=== PATIENT | female | born 1995 | race Caucasian/White ===

== ENCOUNTER 2019-09-20 18:42 | Emergency (ER) | payer MEDICAID ==
[~2019-09-20] VITALS: Ht 157.4 cm; Wt 73.4 kg
[~2019-09-20 18:42] MED LIST: ERYT1OIN6 OP
[2019-09-20] MEDS ORDERED: NS IV 500 ML 500 ML IV ONE (19:35)
[2019-09-20 19:46] LABS: BASOPHILS # (AUTO) 0.1 10^3/uL (0.0-0.1); BASOPHILS % (AUTO) 1 % (0-10); EOSINOPHILS % (AUTO) 10 % (0-10); HEMATOCRIT 44 % (35-52); LYMPHOCYTES # (AUTO) 4.1 X 10^3 (1.0-4.0); LYMPHOCYTES % (AUTO) 38 % (12-44); MEAN CORPUSCULAR HEMOGLOBIN 29 PG (25-34); MEAN CORPUSCULAR HGB CONC 34 G/DL (32-36); MEAN CORPUSCULAR VOLUME 86 FL (80-99); MEAN PLATELET VOLUME 10.1 FL (7.4-10.4); MONOCYTES # (AUTO) 0.8 X 10^3 (0.0-1.0); MONOCYTES % (AUTO) 8 % (0-12); NEUTROPHILS # (AUTO) 4.7 X 10^3 (1.8-7.8); NEUTROPHILS % (AUTO) 44 % (42-75); PLATELET COUNT 359 10^3/uL (130-400); RED CELL DISTRIBUTION WIDTH 13.8 % (10.0-14.5); WHITE BLOOD COUNT 10.6 10^3/uL (4.3-11.0)
--- NOTE | 2019-09-20 19:48 | ED Psychosocial ---
General Stated Complaint: HEART RACING/ABD PAIN/MENTAL HEALTH PROBLEMS Source: patient Exam Limitations: no limitations History of Present Illness Date Seen by Provider: Sep 20, 2019 Time Seen by Provider: 19:20 Initial Comments Patient reports to the ER by private conveyance with chief complaint of feeling like something is wrong with her heart because she's been having some shoulder and neck pains for the past for 5 days. She's not having any chest pain or shortness of breath at this time but she says she has had periods where her left chest. Hurting her and is worse on movement. She also will be laying in bed or sitting still feeling very short of breath. She denies if history of coronary disease and heart attacks or strokes however she says during her last she was sent to Dr. Morrison at [facility] and was told she had some kind of heart disease but she doesn't know what is called or what it means. He put her on a monitor for the rest of her at that time and told her she had some kind of inappropriate tachycardia. He did not prescribe her any medications and set her up to follow-up in the clinic in 6 months. She smokes about a quarter pack a day and has used marijuana occasionally but does not use alcohol routinely or other recreational drugs. She has a lot of anxiety and has been having suicidal thoughts lately for the past several weeks. She plan to cut on herself or her major artery using a kitchen knives. She has cut on herself in the past her left wrist mostly but denies actual suicide attempt. She denies inpatient hospitalization for psychiatric reasons. She denies cutting on herself today. expecting her next Depo-Provera shot in about 1-2 weeks. She does not follow with a primary care doctor and is not on any other medications at this time. She recently moved about 3 weeks ago to [place]. She lives at home with her 3 children. Severity: moderate Allergies and Home Medications Allergies Coded Allergies: No Known Drug Allergies (Unverified , 09/20/19) Home Medications Erythromycin Base 1 Gm Oint...g., 0 OP Q4H 1/2 inch Prescribed by: HSERON HYDE on 06/13/15 1335 Patient Home Medication List Home Medication List Reviewed: Yes Review of Systems Constitutional: No chills, No diaphoresis EENTM: No ear discharge, No ear pain Respiratory: see HPI; No cough; short of breath Cardiovascular: see HPI; No edema, No Hx of Intervention, No palpitations, No syncope Gastrointestinal: No abdominal pain, No constipation Genitourinary: No discharge, No dysuria : No Control/STD Prophylaxis: Depo Provera Musculoskeletal: No back pain, No joint pain Skin: No pruritus, No rash Psychiatric/Neurological: See HPI, Anxiety, Depressed, Emotional Problems; Denies Headache, Denies Numbness, Denies Paresthesia Past Wapnkzf-Kfzkmf-Nyeueb Hx Patient Social History Alcohol Use: Rarely Uses Recreational Drug Use: Yes Drug of Choice: occ cannibus Smoking Status: Current Everyday Smoker Type Used: Cigarettes (0.25 ppd) Recent Foreign Travel: No Contact w/Someone Who Travel: No Past Medical History Reproductive Disorders: No Family Medical History No Pertinent Family Hx Physical Exam Vital Signs - First Documented 09/20/19 19:20 Temp 36.8 Pulse 102 Resp 18 B/P (MAP) 116/79 (91) Pulse Ox 98 Capillary Refill : Height, Weight, BMI Height: 5'2" Weight: 170lbs. oz. [id number]; BMI Method: General Appearance: WD/WN, no apparent distress HEENT: PERRL/EOMI, pharynx normal Neck: full range of motion, normal inspection Respiratory: chest non-tender, lungs clear, normal breath sounds, no respiratory distress, no accessory muscle use Cardiovascular: normal peripheral pulses, regular rate, rhythm Peripheral Pulses: 2+ Radial Pulses (R), 2+ Radial Pulses (L) Gastrointestinal: normal bowel sounds, non tender, soft Extremities: normal range of motion, non-tender, normal capillary refill Neurologic/Psychiatric: alert, normal mood/affect, oriented x 3 Appearance/Memory: appropriate appearance, appropriate insight Behavior/Eye Contact: cooperative, good eye contact, normal speech Thoughts/Hallucinations: normal thought pattern, no apparent hallucination Skin: normal color, warm/dry Progress/Results/Core Measures Results/Orders Lab Results Laboratory Tests Test 09/20/19 19:35 09/20/19 20:16 Range/Units White Blood Count 10.6 4.3-11.0 10^3/uL Red Blood Count 5.10 4.35-5.85 10^6/uL Hemoglobin 15.0 11.5-16.0 G/DL Hematocrit 44 35-52 % Mean Corpuscular Volume 86 80-99 FL Mean Corpuscular Hemoglobin 29 25-34 PG Mean Corpuscular Hemoglobin Concent 34 32-36 G/DL Red Cell Distribution Width 13.8 10.0-14.5 % Platelet Count 359 130-400 10^3/uL Mean Platelet Volume 10.1 7.4-10.4 FL Neutrophils (%) (Auto) 44 42-75 % Lymphocytes (%) (Auto) 38 12-44 % Monocytes (%) (Auto) 8 0-12 % Eosinophils (%) (Auto) 10 0-10 % Basophils (%) (Auto) 1 0-10 % Neutrophils # (Auto) 4.7 1.8-7.8 X 10^3 Lymphocytes # (Auto) 4.1 H 1.0-4.0 X 10^3 Monocytes # (Auto) 0.8 0.0-1.0 X 10^3 Eosinophils # (Auto) 1.0 H 0.0-0.3 10^3/uL Basophils # (Auto) 0.1 0.0-0.1 10^3/uL Sodium Level 139 135-145 MMOL/L Potassium Level 4.3 3.6-5.0 MMOL/L Chloride Level 106 98-107 MMOL/L Carbon Dioxide Level 22 21-32 MMOL/L Anion Gap 11 5-14 MMOL/L Blood Urea Nitrogen 20 H 7-18 MG/DL Creatinine 0.82 0.60-1.30 MG/DL Estimat Glomerular Filtration Rate > 60 BUN/Creatinine Ratio 24 Glucose Level 86 70-105 MG/DL Calcium Level 9.9 8.5-10.1 MG/DL Corrected Calcium 8.5-10.1 MG/DL Total Bilirubin 0.3 0.1-1.0 MG/DL Aspartate Amino Transf (AST/SGOT) 19 5-34 U/L Alanine Aminotransferase (ALT/SGPT) 26 0-55 U/L Alkaline Phosphatase 114 40-136 U/L Total Protein 8.6 H 6.4-8.2 GM/DL Albumin 4.9 H 3.2-4.5 GM/DL Thyroid Stimulating Hormone (TSH) 1.67 0.35-4.94 UIU/ML Salicylates Level < 5.0 L 5.0-20.0 MG/DL Acetaminophen Level < 10 L 10-30 UG/ML Serum Alcohol < 10 <10 MG/DL Urine Color YELLOW Urine Clarity CLEAR Urine pH 7.0 5-9 Urine Specific [place] 1.020 1.016-1.022 Urine Protein NEGATIVE NEGATIVE Urine Glucose (UA) NEGATIVE NEGATIVE Urine Ketones NEGATIVE NEGATIVE Urine Nitrite NEGATIVE NEGATIVE Urine Bilirubin NEGATIVE NEGATIVE Urine Urobilinogen 0.2 < = 1.0 MG/DL Urine Leukocyte Esterase TRACE NEGATIVE Urine RBC (Auto) NEGATIVE NEGATIVE Urine RBC RARE /HPF Urine WBC RARE /HPF Urine Squamous Epithelial Cells 2-5 /HPF Urine Crystals NONE /LPF Urine Bacteria FEW H /HPF Urine Casts NONE /LPF Urine Mucus SMALL H /LPF Urine Culture Indicated NO Urine Opiates Screen NEGATIVE NEGATIVE Urine Oxycodone Screen NEGATIVE NEGATIVE Urine Methadone Screen NEGATIVE NEGATIVE Urine Propoxyphene Screen NEGATIVE NEGATIVE Urine Barbiturates Screen NEGATIVE NEGATIVE Ur Tricyclic Antidepressants Screen NEGATIVE NEGATIVE Urine Phencyclidine Screen NEGATIVE NEGATIVE Urine Amphetamines Screen POSITIVE H NEGATIVE Urine Methamphetamines Screen POSITIVE H NEGATIVE Urine Benzodiazepines Screen POSITIVE H NEGATIVE Urine Cocaine Screen NEGATIVE NEGATIVE Urine Cannabinoids Screen NEGATIVE NEGATIVE My Orders Orders - ADDIS VEGA Ua Culture If Indicated (09/20/19 19:35) Cbc With Automated Diff (09/20/19 19:35) Comprehensive Metabolic Panel (09/20/19 19:35) Alcohol (09/20/19 19:35) Drug Screen Stat (Urine) (09/20/19 19:35) Acetaminophen (09/20/19 19:35) Salicylate (09/20/19 19:35) Ekg Tracing (09/20/19 19:35) Ed Iv/Invasive Line Start (09/20/19 19:35) Monitor-Rhythm Ecg Trace Only (09/20/19 19:35) Bh Status Checks/Observation Q15M (09/20/19 19:35) Ed Iv/Invasive Line Start (09/20/19 19:35) Ns Iv 500 Ml (Sodium Chloride 0.9%) (09/20/19 19:35) Urine Bedside (09/20/19 19:35) Chest 1 View, Ap/Pa Only (09/20/19 19:35) Thyroid Stimulating Hormone (09/20/19 19:35) Medications Given in ED Current Medications Medications Dose Ordered Sig/Lisa Route Start Time Stop Time Status Last Admin Dose Admin Sodium Chloride 500 ml @ 0 mls/hr Q0M ONCE IV 09/20/19 19:35 09/20/19 19:39 DC 09/20/19 19:50 500 MLS/HR Vital Signs/I&O 09/20/19 19:20 Temp 36.8 Pulse 102 Resp 18 B/P (MAP) 116/79 (91) Pulse Ox 98 Progress Progress Note #1: Time: 20:31 Progress Note We'll look for dysrhythmias evidence of myocarditis or pericarditis. Check an EKG and troponin. We'll get a chest x-ray. She's not having a cough or symptoms to support pneumonia. She has good breath sounds bilaterally so pneumothorax is much less likely. Her symptoms are intermittent which is more likely related to an anxiety syndrome rather than persistent life-threatening cause of chest pain. Progress Note #2: Time: 21:11 Progress Note The patient is comfortable. Were going to have the screenerEligio for [facility] come out and speak to her about setting up some outpatient follow-up versus inpatient. Her labs are unremarkable but her urine drug screen reveals benzos and methamphetamine. Progress Note #3: Time: 21:57 Progress Note Dez from [facility] came out and screen the patient. His sto ry lined up with our story and after discussing her needs he has helped her set up some outpatient follow-up through community health as well as with psychiatric care and counseling. He will also call and check up on her in the morning. He feels that she is low risk and at this time I would agree. She has a safe line and in agreement in place and is willing to go home and follow-up tomorrow. Initial ECG Impression Date: Sep 20, 2019 Initial ECG Impression Time: 19:34 Initial ECG Rate: 89 Initial ECG Rhythm: Normal Sinus Initial ECG Intervals: Normal Initial ECG Impression: Normal Initial ECG Comparisson: No Previous ECG Available Comment Normal sinus rhythm without ST elevation or depression. Diagnostic Imaging Diagonstic Imaging: Xray Plain Films/CT/US/NM/MRI: chest (1v) Comments NAME: MANUELMAYURI REC#: [id number] PT STATUS: REG ER : 1995 PHYSICIAN: ADDIS VEGA MD ADMIT DATE: 09/20/19/ER Signed Date of Exam:09/20/19 CHEST 1 VIEW, AP/PA ONLY CHEST 1 VIEW, AP/PA ONLY Indication: Cough Comparison: None available. Findings: No focal airspace disease in the visualized lungs. Please note that the posterior lower lobes are poorly evaluated by portable radiography. No pleural effusion or pneumothorax. Normal cardiomediastinal silhouette. Impression: 1. No acute cardiopulmonary process by portable radiography. Dictated by: Dictated on workstation # [id number] Dict: 09/20/192009 Trans: 09/20/192009 [facility] [id number] Interpreted by: JACK HOU MD Electronically signed by: JACK HOU MD 09/20/192009 Reviewed: Reviewed by Me Departure Impression Primary Impression: Depression with suicidal ideation Additional Impression: Musculoskeletal chest pain Disposition: HOME, SELF-CARE Condition: Stable Departure-Patient Inst. Decision time for Depature: 21:58 Referrals: NO,LOCAL PHYSICIAN (PCP/Family) Primary Care Physician Patient Instructions: Depression, Adult (DC), ALCOHOL AND SUBSTANCE ABUSE, Suicide Prevention Add. Discharge Instructions: Tomorrow follow-up with the [facility] health folks per your plan. Get set up with a primary care doctor to discuss possible causes of your body aches. Get set up with a psychiatrist and counseling as appropriate for your suicidal thoughts. If it any point you don't feel like your safe at home or you need to come back To the ER then please return to the nearest ER. Work/School Note: Work Release Form Date Seen in the Emergency Department: Sep 20, 2019 Return to Work: Sep 22, 2019 Restrictions: No Restrictions ADDIS VEGA Sep 20, 2019 19:48
[2019-09-20 20:04] LABS: ALANINE AMINOTRANSFERASE 26 U/L (0-55); ALBUMIN 4.9 GM/DL (3.2-4.5); ALKALINE PHOSPHATASE 114 U/L (40-136); BILIRUBIN,TOTAL 0.3 MG/DL (0.1-1.0); BUN/CREATININE RATIO 24; CALCIUM 9.9 MG/DL (8.5-10.1); CARBON DIOXIDE 22 MMOL/L (21-32); CHLORIDE 106 MMOL/L (98-107); CREATININE SERUM 0.82 MG/DL (0.60-1.30); GFR ESTIMATED > 60; GLUCOSE 86 MG/DL (70-105); POTASSIUM 4.3 MMOL/L (3.6-5.0); SALICYLATE < 5.0 MG/DL (5.0-20.0); SODIUM 139 MMOL/L (135-145); TOTAL PROTEIN 8.6 GM/DL (6.4-8.2)
--- NOTE | 2019-09-20 20:12 | Diagnostic Imaging Report ---
CHEST 1 VIEW, AP/PA ONLY Indication: Cough Comparison: None available. Findings: No focal airspace disease in the visualized lungs. Please note that the posterior lower lobes are poorly evaluated by portable radiography. No pleural effusion or pneumothorax. Normal cardiomediastinal silhouette. Impression: 1. No acute cardiopulmonary process by portable radiography. Dictated by: Dictated on workstation # [id number]
[2019-09-20 20:25] LABS: BILIRUBIN,URINE NEGATIVE (NEGATIVE); CLARITY,URINE CLEAR; COLOR,URINE YELLOW; GLUCOSE, URINE (UA) NEGATIVE (NEGATIVE); KETONES,URINE NEGATIVE (NEGATIVE); LEUKOCYTE ESTERASE ,URINE TRACE (NEGATIVE); NITRITE,URINE NEGATIVE (NEGATIVE); PROTEIN,URINE NEGATIVE (NEGATIVE)
[2019-09-20 20:25] LABS: ACETAMINOPHEN < 10 UG/ML (10-30)
[2019-09-20 20:39] LABS: AMPHETAMINE SCREEN, URINE POSITIVE (NEGATIVE); BARBITURATE SCREEN URINE NEGATIVE (NEGATIVE); BENZODIAZEPINES SCREEN URINE POSITIVE (NEGATIVE); CANNABINOID SCREEN, URINE NEGATIVE (NEGATIVE); COCAINE SCREEN URINE NEGATIVE (NEGATIVE); METHADONE STAT NEGATIVE (NEGATIVE); METHAMPHETAMINE SCREEN URINE S POSITIVE (NEGATIVE); OPIATE SCREEN URINE NEGATIVE (NEGATIVE); OXYCODONE STAT NEGATIVE (NEGATIVE); PROPOXYPHENE STAT NEGATIVE (NEGATIVE); TRICYCLIC ANTIDEPRESSANTS SCRE NEGATIVE (NEGATIVE)
[2019-09-20 20:48] LABS: BACTERIA,URINE FEW /HPF; RBC,URINE RARE /HPF; WBC,URINE RARE /HPF
--- NOTE | 2019-09-20 20:58 | NUR ---
SPOKE WITH BAILEY GREENWOOD FROM [facility] CALLS INFORMS THIS RN HE WILL BE COMING TO SCREEN PATIENT.
--- NOTE | 2019-09-20 21:17 | NUR ---
BAILEY HOROWITZ FROM [facility] ARRIVES TO ROOM, INTRODUCTIONS MADE FOR SCREENING.
--- NOTE | 2019-09-20 21:36 | NUR ---
[facility] CRISIS [facility] INFORMED MENTAL HEALTH SREENING NEEDED
--- NOTE | 2019-09-20 21:50 | NUR ---
SCREENING COMPLETE, DR VEGA SPEAKING WITH [facility] SCREENER.
[2019-09-20 22:11] VITALS: BP 120/67
== END 2019-09-20 22:13 | disposition home or self-care (01) ==
LOC: EDUNIT# 18:42 → ER 18:44
DX: R45.851 Suicidal ideations (principal); F32.9 Major depressive disorder, single episode, unspecified; R07.89 Other chest pain; F17.210 Nicotine dependence, cigarettes, uncomplicated
CPT/HCPCS: 36415; 71045; 80053; 80306; 80320; 80329; 81000; 84443; 84703; 85025; 93005; 93041

== ENCOUNTER 2020-04-25 09:06 | Emergency (ER) | payer MEDICAID ==
[~2020-04-25] VITALS: Ht 157.4 cm; Wt 77.7 kg
[2020-04-25 09:08] VITALS: BP 149/103
--- NOTE | 2020-04-25 09:37 | ED Integumentary General ---
General Chief Complaint: Skin/Wound Problems Stated Complaint: RASH;SKIN PROBLEM;NAUSEA Source: patient Exam Limitations: no limitations (GINGER LUX STUDENT) History of Present Illness Date Seen by Provider: Apr 25, 2020 Time Seen by Provider: 09:20 Initial Comments This is a 24 YO female who presents to the ED with rash on the right facial cheek that she noticed at 4:00 this morning. Pt states she noticed what looked like a pimple on her face last night and tried to pop it, but was unable to express any pus or drainage. When she woke up this morning, the whole cheek was red, swollen, painful, and oozing clear fluid and she had developed a sore throat. Pt took OTC Ibuprofen with no improvement in pain. She also notes she felt subjective fever and chills on the drive to the ER. He has a history of root canal on the upper right side of her mouth, which she says needs to be redone, but denies any recent dental pain or infection. Pt says her mother is a nurse and was worried about cellulitis, so she wanted pt to come to the ER. Timing/Duration: this morning Location: face Associated Symptoms: sore throat (GINGER LUX STUDENT) Allergies and Home Medications Allergies Coded Allergies: No Known Drug Allergies (Unverified , 09/20/19) Home Medications Doxycycline Hyclate 100 Mg Tablet, 100 MG PO BID Prescribed by: ISAIAH LUNA on 04/25/20 1003 Erythromycin Base 1 Gm Oint...g., 0 OP Q4H 1/2 inch Prescribed by: SHERON HYDE on 06/13/15 1335 Sulfamethoxazole/Trimethoprim 1 Each Tablet, 1 EACH PO BID Prescribed by: ISAIAH LUNA on 04/25/20 1003 Patient Home Medication List Home Medication List Reviewed: Yes (GINGER LUX STUDENT) Review of Systems Review of Systems Constitutional: see HPI EENTM: see HPI Respiratory: no symptoms reported Cardiovascular: no symptoms reported Gastrointestinal: no symptoms reported Genitourinary: no symptoms reported Musculoskeletal: see HPI Skin: see HPI Psychiatric/Neurological: No Symptoms Reported Endocrine: No Symptoms Reported Hematologic/Lymphatic: See HPI (GINGER LUX STUDENT) All Other Systems Reviewed Negative Unless Noted: Yes (GINGER LUX STUDENT) Past Iaiyihz-Lwsofa-Rnztty Hx Patient Social History Drug of Choice: occ cannibus Type Used: Cigarettes 2nd Hand Smoke Exposure: Yes Recent Foreign Travel: No Contact w/Someone Who Travel: No Recent Hopitalizations: No (GINGER LUX MED STUDENT) Immunizations Up To Date Tetanus Booster (TDap): Less than 5yrs PED Vaccines UTD: Yes (GINGER LUX) Seasonal Allergies Seasonal Allergies: Yes (GINGER LUX) Past Medical History Gallbladder Respiratory: No Cardiac: Yes Irregular Heartbeat, Palpitations Headaches /Migraines Reproductive Disorders: No Chronic Constipation, Chronic Diarrhea, Irritable Bowel Musculoskeletal: No Endocrine: No HEENT: No (wears glasses) Cancer: No Psychosocial: Yes Sleep Difficulties, Anxiety, PTSD, Suicide Attempts, Bipolar, Depression Integumentary: No Blood Disorders: No (GINGER LUX) Family Medical History No Pertinent Family Hx (GINGER LUX) Physical Exam Vital Signs Vital Signs - First Documented 04/25/20 09:08 Temp 36.4 Pulse 113 Resp 18 B/P (MAP) 149/103 (118) O2 Delivery Room Air (ISAIAH BREAUX MD) Vital Signs Capillary Refill : (GINGER LUX STUDENT) General Appearance: WD/WN, no apparent distress HEENT: PERRL/EOMI, TM abnormal (R) (occluded by cerumen), other (tonsillar swelling and erythema) Neck: non-tender, supple, normal inspection Cardiovascular: regular rate, rhythm Respiratory: no respiratory distress, no accessory muscle use Extremities: normal range of motion, normal inspection Neurologic/Psychiatric: no motor/sensory deficits, alert, normal mood/affect, oriented x 3 Skin: No diaphoresis; other (right cheek is erythematous and swollen with some mild induration and tenderness, but no fluctuance) Skin Problem Location: face Lymphatic: no adenopathy (GINGER LUX LurnQ STUDENT) Progress/Results/Core Measures Results/Orders My Orders Orders - ISAIAH BREAUX MD Ceftriaxone For Im Use (Rocephin For Im (04/25/20 10:00) Lidocaine 1% Inj 20 Ml (Xylocaine 1% Inj (04/25/20 10:00) (ISAIAH BREAUX MD) Medications Given in ED Current Medications Medications Dose Ordered Sig/Lisa Route Start Time Stop Time Status Last Admin Dose Admin Ceftriaxone Sodium 1,000 mg ONCE ONCE IM 04/25/20 10:00 04/25/20 10:01 DC 04/25/20 10:08 1,000 MG Lidocaine HCl 2.1 ml ONCE ONCE INJ 04/25/20 10:00 04/25/20 10:01 DC 04/25/20 10:09 2.1 ML (ISAIAH BREAUX MD) Vital Signs/I&O 04/25/20 09:08 Temp 36.4 Pulse 113 Resp 18 B/P (MAP) 149/103 (118) O2 Delivery Room Air (ISAIAH BREAUX MD) Progress Progress Note : Time: 10:00 Progress Note Talked to pt about plan to give IM shot of Rocephin in the ED and write pt Rx for Bactrim. Discussed that I&D is not indicated at this time because pt does not have a fluctuant abscess that can be drained. Advised pt to not touch the cheek and to return to the ED if her symptoms worsen or do not improve. Pt un derstands and agrees with plan. (GINGER LUX MED STUDENT) Departure Impression Primary Impression: Facial cellulitis Disposition: 01 HOME, SELF-CARE Condition: Improved Departure-Patient Inst. Referrals: NO,LOCAL PHYSICIAN (PCP/Family) Primary Care Physician Patient Instructions: Cellulitis (Skin Infection), Adult (DC) Add. Discharge Instructions: Start your antibiotics immediately and completely entire course. You should start noticing gradual improvement after about 24 hours of antibiotic therapy. If symptoms are worsening or you develop new symptoms such as fevers over 100, continued spreading, intensifying pain, etc. please return to the emergency room. You may treat pain with ibuprofen up to 600 mg every 6 hours and Tylenol up to 1000 mg every 6 hours. All discharge instructions reviewed with patient and/or family. Voiced understanding. Scripts Doxycycline Hyclate (Doxycycline Hyclate) 100 Mg Tablet 100 MG PO BID, #20 TAB 0 Refills Prov: ISAIAH BREAUX MD 04/25/20 Sulfamethoxazole/Trimethoprim (Bactrim Ds Tablet) 1 Each Tablet 1 EACH PO BID, #20 TAB Prov: ISAIAH BREAUX MD 04/25/20 This patient was interviewed and examined by me personally along with Ginger Lux, MS 3. I agree with MS 3 documentation including history, physical, and assessments except were otherwise noted. This patient may have had a pustule that led to cellulitis. Careful palpation of the area revealed no drainable abscess. Staph infection is suspected. Treatment was started with Rocephin injection in the emergency room. She will be treated aggressively with further antibiotics including Bactrim DS and doxycycline. Strict return precautions were discussed with the patient. Exam: Gen.: Alert, oriented, well-developed, in no acute distress HEENT: There is a patch of erythema and perhaps about 6 cm in diameter on the right cheek with some associated induration. Skin also feels slightly excoriated, possibly traumatized by the patient. Patient has been experiencing weeping of clear liquid but this is not really expressible or witnessed on my exam. Area is tender. Oropharynx including the gumline is unremarkable on my exam Neck: No adenopathy or tenderness Heart: Regular rate and rhythm without murmur Lungs: Clear to auscultation bilaterally Skin: Warm and dry, see HEENT above (ISAIAH BREAUX MD) GINGER LUX MED STUDENT Apr 25, 2020 09:37 ISAIAH BREAUX MD Apr 25, 2020 10:06
[2020-04-25] MEDS ORDERED: LIDOCAINE 1% INJ 20 ML 20 ML VIAL INJ ONE (10:00)
[2020-04-25] MEDS ORDERED: cefTRIAXone 1,000 MG/2.86 ml vial (IM ONLY) IM ONE (10:00)
[2020-04-25] MEDS ORDERED: DOXY100T2 PO (10:03)
[2020-04-25] MEDS ORDERED: SULF1TAB35 PO (10:03)
== END 2020-04-25 10:19 | disposition home or self-care (01) ==
LOC: EDUNIT# 09:06 → ER 09:08
DX: L03.211 Cellulitis of face (principal); K58.0 Irritable bowel syndrome with diarrhea; K58.1 Irritable bowel syndrome with constipation; H61.21 Impacted cerumen, right ear; Z77.22 Contact with and (suspected) exposure to environmental tobacco smoke (acute) (chronic)
CPT/HCPCS: 99284

== ENCOUNTER 2020-04-28 09:05 | Emergency (ER) | payer MEDICAID ==
[~2020-04-28] VITALS: Ht 157 cm; Wt 72.0 kg
[~2020-04-28 09:05] MED LIST changes: +DOXY100T2 PO; +SULF1TAB35 PO
[2020-04-28 10:04] LABS: BASOPHILS % (AUTO) 1 % (0-10); EOSINOPHILS # (AUTO) 0.2 10^3/uL (0.0-0.3); EOSINOPHILS % (AUTO) 3 % (0-10); HEMATOCRIT 42 % (35-52); HEMOGLOBIN 14.5 G/DL (11.5-16.0); LYMPHOCYTES # (AUTO) 2.2 X 10^3 (1.0-4.0); LYMPHOCYTES % (AUTO) 35 % (12-44); MEAN CORPUSCULAR HEMOGLOBIN 30 PG (25-34); MEAN CORPUSCULAR HGB CONC 35 G/DL (32-36); MEAN CORPUSCULAR VOLUME 86 FL (80-99); MEAN PLATELET VOLUME 10.8 FL (7.4-10.4); MONOCYTES # (AUTO) 0.5 X 10^3 (0.0-1.0); MONOCYTES % (AUTO) 8 % (0-12); NEUTROPHILS # (AUTO) 3.3 X 10^3 (1.8-7.8); NEUTROPHILS % (AUTO) 53 % (42-75); PLATELET COUNT 263 10^3/uL (130-400); RED CELL DISTRIBUTION WIDTH 12.4 % (10.0-14.5); WHITE BLOOD COUNT 6.2 10^3/uL (4.3-11.0)
[2020-04-28 10:14] LABS: ALBUMIN 4.3 GM/DL (3.2-4.5); CHLORIDE 106 MMOL/L (98-107); POTASSIUM 3.6 MMOL/L (3.6-5.0); SODIUM 138 MMOL/L (135-145)
[2020-04-28 10:15] LABS: CALCIUM 9.2 MG/DL (8.5-10.1)
[2020-04-28 10:16] LABS: GLUCOSE 91 MG/DL (70-105); TOTAL PROTEIN 7.6 GM/DL (6.4-8.2)
[2020-04-28 10:17] LABS: CARBON DIOXIDE 22 MMOL/L (21-32)
[2020-04-28 10:18] LABS: BILIRUBIN,TOTAL 0.4 MG/DL (0.1-1.0)
[2020-04-28 10:20] LABS: ALKALINE PHOSPHATASE 96 U/L (40-136); CREATININE SERUM 0.84 MG/DL (0.60-1.30); GFR ESTIMATED > 60
[2020-04-28 10:21] LABS: BUN/CREATININE RATIO 13
[2020-04-28 10:23] LABS: ALANINE AMINOTRANSFERASE 18 U/L (0-55)
--- NOTE | 2020-04-28 10:58 | ED EENT ---
History of Present Illness General Chief Complaint: Facial Problems Stated Complaint: LOSS OF HEARING R EAR, FACIAL CELLULITIS Nursing Triage Note: PT TO ROOM 4 PT CO OF R EAR PAIN AND MUFFLED HEARING, PT STATES WAS SEEN FRIDAY FOR LARGE WOUND ON FACE. PT IS CURRENTLY TAKING ANTIBIOTICS. STATES WOUND IS BETTER BUT R EAR HAS STARTED HURTING Source: patient Exam Limitations: no limitations History of Present Illness Date Seen by Provider: Apr 28, 2020 Time Seen by Provider: 10:52 Initial Comments To ER with reports of right ear and right jaw pain. She was seen here a few days ago for cellulitis of the right side of the face. She was given 2 oral antibiotics and states it is improving a little bit but she now has some pain in her ear, difficulty hearing. Timing/Duration: this morning Severity: moderate Prearrival Treatment: no prearrival treatment Associated Symptoms: facial pain/swelling Allergies and Home Medications Allergies Coded Allergies: No Known Drug Allergies (Unverified , 09/20/19) Home Medications Doxycycline Hyclate 100 Mg Tablet, 100 MG PO BID Prescribed by: ISAIAH LUNA on 04/25/20 1003 Erythromycin Base 1 Gm Oint...g., 0 OP Q4H 1/2 inch Prescribed by: SHERON HYDE on 06/13/15 1335 Sulfamethoxazole/Trimethoprim 1 Each Tablet, 1 EACH PO BID Prescribed by: ISAIAH LUNA on 04/25/20 1003 Patient Home Medication List Home Medication List Reviewed: Yes Review of Systems Review of Systems Constitutional: see HPI Eyes: No Symptoms Reported Ears: No Symptoms Reported Nose: no symptoms reported Mouth: no symptoms reported Throat: no symptoms reported Respiratory: no symptoms reported Cardiovascular: no symptoms reported Musculoskeletal: no symptoms reported Skin: see HPI Neurological: No Symptoms Reported Hematologic/Lymphatic: No Symptoms Reported Immunological/Allergic: no symptoms reported Past Fskvdkl-Fsided-Qysqru Hx Patient Social History Alcohol Use: Denies Use Recreational Drug Use: Yes (MARIJUANA) Drug of Choice: occ cannibus Smoking Status: Current Everyday Smoker Type Used: Cigarettes 2nd Hand Smoke Exposure: Yes Recent Foreign Travel: No Contact w/Someone Who Travel: No Recent Infectious Disease Expo: No Recent Hopitalizations: No Physical Abuse: No Sexual Abuse: No Immunizations Up To Date Tetanus Booster (TDap): Less than 5yrs PED Vaccines UTD: Yes Seasonal Allergies Seasonal Allergies: Yes Past Medical History Surgeries: No Gallbladder Respiratory: No Cardiac: Yes Irregular Heartbeat, Palpitations Neurological: No Headaches /Migraines Reproductive Disorders: No Chronic Constipation, Chronic Diarrhea, Irritable Bowel Musculoskeletal: No Endocrine: No HEENT: No (wears glasses) Cancer: No Psychosocial: Yes Sleep Difficulties, Anxiety, PTSD, Suicide Attempts, Bipolar, Depression Integumentary: No Blood Disorders: No Family Medical History No Pertinent Family Hx Physical Exam Vital Signs Vital Signs - First Documented 04/28/20 09:20 Temp 37.0 Pulse 82 Resp 18 B/P (MAP) 116/62 (80) Pulse Ox 99 Height, Weight, BMI Height: 5'2" Weight: 170lbs. oz. [id number]; 29.00 BMI Method: General Appearance: WD/WN, no apparent distress Eyes: bilateral eye normal inspection, bilateral eye PERRL, bilateral eye EOMI Ears: bilateral ear auricle normal, bilateral ear canal normal, bilateral ear TM normal Respiratory: no respiratory distress, no accessory muscle use Gastrointestinal: normal bowel sounds, non tender Neurologic/Psychiatric: alert, normal mood/affect, oriented x 3 Skin: normal color, warm/dry, other (erythema with some honey colored exudate on the right cheek consistent with an impetigo. Right ear does show a cerumen impaction which I attempted to irrigate with peroxide and warm water. We got some of it out but not all of it.) Progress/Results/Core Measures Results/Orders Lab Results Laboratory Tests Test 04/28/20 09:55 Range/Units White Blood Count 6.2 4.3-11.0 10^3/uL Red Blood Count 4.81 4.35-5.85 10^6/uL Hemoglobin 14.5 11.5-16.0 G/DL Hematocrit 42 35-52 % Mean Corpuscular Volume 86 80-99 FL Mean Corpuscular Hemoglobin 30 25-34 PG Mean Corpuscular Hemoglobin Concent 35 32-36 G/DL Red Cell Distribution Width 12.4 10.0-14.5 % Platelet Count 263 130-400 10^3/uL Mean Platelet Volume 10.8 H 7.4-10.4 FL Neutrophils (%) (Auto) 53 42-75 % Lymphocytes (%) (Auto) 35 12-44 % Monocytes (%) (Auto) 8 0-12 % Eosinophils (%) (Auto) 3 0-10 % Basophils (%) (Auto) 1 0-10 % Neutrophils # (Auto) 3.3 1.8-7.8 X 10^3 Lymphocytes # (Auto) 2.2 1.0-4.0 X 10^3 Monocytes # (Auto) 0.5 0.0-1.0 X 10^3 Eosinophils # (Auto) 0.2 0.0-0.3 10^3/uL Basophils # (Auto) 0.0 0.0-0.1 10^3/uL Sodium Level 138 135-145 MMOL/L Potassium Level 3.6 3.6-5.0 MMOL/L Chloride Level 106 98-107 MMOL/L Carbon Dioxide Level 22 21-32 MMOL/L Anion Gap 10 5-14 MMOL/L Blood Urea Nitrogen 11 7-18 MG/DL Creatinine 0.84 0.60-1.30 MG/DL Estimat Glomerular Filtration Rate > 60 BUN/Creatinine Ratio 13 Glucose Level 91 70-105 MG/DL Calcium Level 9.2 8.5-10.1 MG/DL Corrected Calcium 9.0 8.5-10.1 MG/DL Total Bilirubin 0.4 0.1-1.0 MG/DL Aspartate Amino Transf (AST/SGOT) 18 5-34 U/L Alanine Aminotransferase (ALT/SGPT) 18 0-55 U/L Alkaline Phosphatase 96 40-136 U/L C-Reactive Protein High Sensitivity 0.55 H 0.00-0.50 MG/DL Total Protein 7.6 6.4-8.2 GM/DL Albumin 4.3 3.2-4.5 GM/DL Vital Signs/I&O 04/28/20 09:20 Temp 37.0 Pulse 82 Resp 18 B/P (MAP) 116/62 (80) Pulse Ox 99 Blood Pressure Mean: 80 Departure Impression Primary Impression: Impetigo Additional Impression: Cerumen impaction Qualified Codes: H61.21 - Impacted cerumen, right ear Disposition: 01 HOME, SELF-CARE Condition: Stable Departure-Patient Inst. Decision time for Depature: 10:56 Referrals: NO,LOCAL PHYSICIAN (PCP/Family) Primary Care Physician Patient Instructions: Impetigo (DC), Ear Wax Impaction (DC) Add. Discharge Instructions: 1. Use the eardrops as directed to help soften up the wax that is in there. Then you can mix hydrogen peroxide and warm water together and irrigate gently at home after a few days of softening it up. Use a warm wet washcloth to remove the crusts from the right cheek. Scripts Mupirocin (Mupirocin) 22 Gm Oint...g. 1 GM TP BID, #1 TUBE Prov: MCKAYLA ALVAREZ APRN 04/28/20 Neomycin/Polymyxin B Sulf/Hc (Mbhmrhwk-Nldnqqyof-Ng Ear Susp) 10 Ml Drops.susp 10 ML OT BID for 5 Days, #1 DROPS Prov: MCKAYLA ALVAREZ APRN 04/28/20 MCKAYLA ALVAREZ APRN Apr 28, 2020 10:57
[2020-04-28] MEDS ORDERED: HYDR-3870 PO (10:59)
[2020-04-28] MEDS ORDERED: MUPI22OI2 TP (10:59)
[2020-04-28] MEDS ORDERED: NEOM10DR42 OT (10:59)
[2020-04-28] MEDS ORDERED: KETOROLAC 30 MG/ML VIAL IVP ONE (11:00)
[2020-04-28] MEDS ORDERED: cefTRIAXone FOR IV USE 1,000 MG in WATER (STERILE) FOR INJECTION 10 ML IV ONE (11:00)
[2020-04-28 11:24] VITALS: BP 116/62
== END 2020-04-28 11:24 | disposition home or self-care (01) ==
LOC: EDUNIT# 09:05 → ER 09:07
DX: L01.00 Impetigo, unspecified (principal); H61.21 Impacted cerumen, right ear; F17.210 Nicotine dependence, cigarettes, uncomplicated; K58.1 Irritable bowel syndrome with constipation; K58.0 Irritable bowel syndrome with diarrhea
CPT/HCPCS: 36415; 80053; 85025; 86141

== ENCOUNTER 2021-06-22 13:52 | Inpatient (IN) | payer MEDICAID ==
[~2021-06-22] VITALS: Ht 157.5 cm; Wt 52.3 kg
[~2021-06-22 13:52] MED LIST changes: +HYDR-3870 PO; +MUPI22OI2 TP; +NEOM10DR42 OT; -SULF1TAB35 PO; +SULF1TAB38 PO
--- NOTE | 2021-06-22 14:14 | ED GI ---
General Chief Complaint: Abdominal/GI Problems Stated Complaint: ABDOMINAL PAIN Nursing Triage Note: Pt arrives to ER via w/c, c/o sharp stabbing abd pain onset during the night, denies n/v/d. Source of Information: Patient Exam Limitations: No Limitations History of Present Illness Date Seen by Provider: Jun 22, 2021 Time Seen by Provider: 14:12 Initial Comments to ER with sharp right-sided abdominal pain onset last night without nausea vomiting or diarrhea. Had a faint positive test last week and then she began her menstrual period after. Timing/Duration: 1-2 Days Severity/Quality: Moderate Location: RLQ, Generalized Abdomen Radiation: No Radiation Activities at Onset: None Associated Symptoms: Nausea/Vomiting Allergies and Home Medications Allergies Coded Allergies: No Known Drug Allergies (Unverified , 09/20/19) Patient Home Medication List Home Medication List Reviewed: Yes Doxycycline Hyclate (Doxycycline Hyclate) 100 Mg Tablet, 100 MG PO BID Prescribed by: ISAIAH LUNA on 04/25/20 1003 Erythromycin Base (Erythromycin Opthalmic Ointment) 1 Gm Oint...g., 0 OP Q4H Prescribed by: SHERON HYDE on 06/13/15 1335 Hydrocodone/Acetaminophen (Lorcet 5-325 mg Tablet) 1 Each Tablet, 1 EACH PO Q4- 6HR PRN for PAIN-MODERATE Prescribed by: MCKAYLA ALVAREZ on 04/28/20 1059 Mupirocin (Mupirocin) 22 Gm Oint...g., 1 GM TP BID Prescribed by: MCKAYLA ALVAREZ on 04/28/20 1059 Neomycin/Polymyxin B Sulf/Hc (Uuqnttqf-Zcdvwmhfv-Jl Ear Susp) 10 Ml Drops.susp, 10 ML OT BID Prescribed by: MCKAYLA ALVAREZ on 04/28/20 1059 Sulfamethoxazole/Trimethoprim (Bactrim Ds Tablet) 1 Each Tablet, 1 EACH PO BID Prescribed by: IASIAH LUNA on 04/25/20 1003 Review of Systems Review of Systems Constitutional: see HPI EENTM: No Symptoms Reported Respiratory: No Symptoms Reported Cardiovascular: No Symptoms Reported Gastrointestinal: See HPI, Abdominal Pain; Denies Constipated, Denies Diarrhea, Denies Nausea Genitourinary: No Symptoms Reported Musculoskeletal: no symptoms reported Skin: no symptoms reported Psychiatric/Neurological: No Symptoms Reported Endocrine: No Symptoms Reported Hematologic/Lymphatic: No Symptoms Reported Past Rlebdxf-Bofnvd-Lcgssg Hx Patient Social History Tobacco Use?: Yes Tobacco type used: Cigarettes Smoking Status: Current Everyday Smoker Substance use?: Yes Substance type: Methamphetamine, Marijuana Alcohol Use?: No Pt feels they are or have been: No Immunizations Up To Date Tetanus Booster (TDap): Less than 5yrs PED Vaccines UTD: Yes Seasonal Allergies Seasonal Allergies: Yes Past Medical History Surgeries: No Gallbladder Respiratory: No Cardiac: Yes Irregular Heartbeat, Palpitations Neurological: No Headaches /Migraines Last Menstrual Period: Jun 17, 2021 Reproductive Disorders: No Chronic Constipation, Chronic Diarrhea, Irritable Bowel Musculoskeletal: No Endocrine: No HEENT: No (wears glasses) Cancer: No Psychosocial: Yes Sleep Difficulties, Anxiety, PTSD, Suicide Attempts, Bipolar, Depression Integumentary: No Blood Disorders: No Family Medical History No Pertinent Family Hx Physical Exam Vital Signs Vital Signs - First Documented 06/22/21 13:57 Temp 36.8 Pulse 129 Resp 20 B/P (MAP) 115/82 (93) Pulse Ox 99 O2 Delivery Room Air Capillary Refill : Height/Weight/BMI Height: 5'2" Weight: 170lbs. oz. 77.753437zn; 22.00 BMI Method: General Appearance: WD/WN, no apparent distress, thin HEENT: PERRL/EOMI, normal ENT inspection Neck: non-tender, full range of motion Respiratory: no respiratory distress, no accessory muscle use Cardiovascular: regular rate, rhythm, no murmur Gastrointestinal: normal bowel sounds, soft, tenderness Extremities: normal range of motion, non-tender Neurologic/Psychiatric: alert, normal mood/affect, oriented x 3 Skin: normal color, warm/dry Progress/Results/Core Measures Results/Orders Lab Results Laboratory Tests Test 06/22/21 14:29 06/22/21 15:55 Range/Units White Blood Count 23.6 H 4.3-11.0 10^3/uL Red Blood Count 4.17 3.80-5.11 10^6/uL Hemoglobin 12.8 11.5-16.0 g/dL Hematocrit 38 35-52 % Mean Corpuscular Volume 91 80-99 fL Mean Corpuscular Hemoglobin 31 25-34 pg Mean Corpuscular Hemoglobin Concent 34 32-36 g/dL Red Cell Distribution Width 12.7 10.0-14.5 % Platelet Count 335 130-400 10^3/uL Mean Platelet Volume 9.7 9.0-12.2 fL Immature Granulocyte % (Auto) 0 % Neutrophils (%) (Auto) 88 H 42-75 % Lymphocytes (%) (Auto) 8 L 12-44 % Monocytes (%) (Auto) 3 0-12 % Eosinophils (%) (Auto) 0 0-10 % Basophils (%) (Auto) 0 0-10 % Neutrophils # (Auto) 20.7 H 1.8-7.8 10^3/uL Lymphocytes # (Auto) 2.0 1.0-4.0 10^3/uL Monocytes # (Auto) 0.7 0.0-1.0 10^3/uL Eosinophils # (Auto) 0.0 0.0-0.3 10^3/uL Basophils # (Auto) 0.1 0.0-0.1 10^3/uL Immature Granulocyte # (Auto) 0.1 0.0-0.1 10^3/uL Neutrophils % (Manual) 82 % Lymphocytes % (Manual) 8 % Monocytes % (Manual) 1 % Eosinophils % (Manual) 0 % Basophils % (Manual) 0 % Band Neutrophils 9 % Blood Morphology Comment NORMAL Sodium Level 135 135-145 MMOL/L Potassium Level 3.2 L 3.6-5.0 MMOL/L Chloride Level 101 98-107 MMOL/L Carbon Dioxide Level 25 21-32 MMOL/L Anion Gap 9 5-14 MMOL/L Blood Urea Nitrogen 10 7-18 MG/DL Creatinine 0.74 0.60-1.30 MG/DL Estimat Glomerular Filtration Rate 96 BUN/Creatinine Ratio 14 Glucose Level 104 70-105 MG/DL Calcium Level 9.2 8.5-10.1 MG/DL Corrected Calcium 9.4 8.5-10.1 MG/DL Total Bilirubin 0.9 0.1-1.0 MG/DL Aspartate Amino Transf (AST/SGOT) 18 5-34 U/L Alanine Aminotransferase (ALT/SGPT) 19 0-55 U/L Alkaline Phosphatase 76 40-136 U/L Total Protein 7.0 6.4-8.2 GM/DL Albumin 3.8 3.2-4.5 GM/DL Human Chorionic Gonadotropin, Quant < 5 <5 MIU/ML Serum Test, Qualitative NEGATIVE NEGATIVE Urine Color MERA H Urine Clarity SL CLOUDY Urine pH 7.0 5-9 Urine Specific [place] 1.025 H 1.016-1.022 Urine Protein 1+ H NEGATIVE Urine Glucose (UA) TRACE H NEGATIVE Urine Ketones NEGATIVE NEGATIVE Urine Nitrite POSITIVE H NEGATIVE Urine Bilirubin 1+ H NEGATIVE Urine Urobilinogen 4.0 < = 1.0 MG/DL Urine Leukocyte Esterase 2+ H NEGATIVE Urine RBC (Auto) 1+ H NEGATIVE Urine RBC RARE /HPF Urine WBC 10-25 H /HPF Urine Squamous Epithelial Cells 2-5 /HPF Urine Crystals PRESENT H /LPF Urine Amorphous Sediment MOD KJ PHOSPHATE H /LPF Urine Bacteria FEW H /HPF Urine Casts NONE /LPF Urine Mucus MODERATE H /LPF Urine Culture Indicated YES Urine Opiates Screen NEGATIVE NEGATIVE Urine Oxycodone Screen NEGATIVE NEGATIVE Urine Methadone Screen NEGATIVE NEGATIVE Urine Propoxyphene Screen NEGATIVE NEGATIVE Urine Barbiturates Screen NEGATIVE NEGATIVE Ur Tricyclic Antidepressants Screen NEGATIVE NEGATIVE Urine Phencyclidine Screen NEGATIVE NEGATIVE Urine Amphetamines Screen POSITIVE H NEGATIVE Urine Methamphetamines Screen POSITIVE H NEGATIVE Urine Benzodiazepines Screen NEGATIVE NEGATIVE Urine Cocaine Screen NEGATIVE NEGATIVE Urine Cannabinoids Screen POSITIVE H NEGATIVE My Orders Orders - MCKAYLA ALVAREZ APRN Ua Culture If Indicated (06/22/21 14:09) Type And Screen (06/22/21 14:09) Cbc With Automated Diff (06/22/21 14:11) Hcg,Qualitative Serum (06/22/21 14:11) Hcg,Quantitative (06/22/21 14:11) Comprehensive Metabolic Panel (06/22/21 14:11) Lactated Ringers (Lr 1000 Ml Iv Solution (06/22/21 14:15) Fentanyl Inj (Sublimaze Injection) (06/22/21 14:15) Manual Differential (06/22/21 14:29) Drug Screen Stat (Urine) (06/22/21 14:53) Ct Abd/Pelv W (Appendicitis) (06/22/21 15:02) Iohexol Injection (Omnipaque 350 Mg/Ml 1 (06/22/21 15:15) Received Contrast (Hold Metformin- Contr (06/22/21 15:15) Sodium Chloride Flush (Catheter Flush Sy (06/22/21 15:15) Ns (Ivpb) (Sodium Chloride 0.9% Ivpb Bag (10/22/21 15:15) Fentanyl Inj (Sublimaze Injection) (06/22/21 15:45) Urine Culture (06/22/21 15:55) Ceftriaxone (Rocephin) (06/22/21 16:30) Blood Culture (06/22/21 16:30) Lactic Acid Analyzer (06/22/21 16:30) Medications Given in ED Current Medications Medications Dose Ordered Sig/Lisa Route Start Time Stop Time Status Last Admin Dose Admin Fentanyl Citrate 50 mcg ONCE ONCE IVP 06/22/21 14:15 06/22/21 14:16 DC 06/22/21 14:32 50 MCG Fentanyl Citrate 50 mcg ONCE ONCE IVP 06/22/21 15:45 06/22/21 15:46 DC 06/22/21 15:58 50 MCG Vital Signs/I&O 06/22/21 06/22/21 06/22/21 13:57 14:58 15:36 Temp 36.8 Pulse 129 98 106 Resp 20 B/P (MAP) 115/82 (93) 106/62 11/64 Pulse Ox 99 98 96 O2 Delivery Room Air Room Air Room Air Blood Pressure Mean: 93 Departure Communication (Admissions) 1641 still having some pain though she states it is moved more midline. This may simply be a UTI though her appendix cannot be clearly identified so that remains within the differential. Discussed with Dr. Nolan and Dr. Jasso. Will admit on IV antibiotics, follow clinically. If the pain and labs worsen then she may need exploratory laparotomy. If it improves she can be treated as a simple UTI. Currently she meet sepsis criteria. I will have her on a clear liquid diet pain control as well. Patient is agreeable with this plan. Impression Primary Impression: Urinary tract infection Additional Impression: Sepsis Disposition: 09 ADMITTED INPATIENT Condition: Stable Admissions Decision to Admit Reason: Admit from ER (General) Decision to Admit/Date: Jun 22, 2021 Time/Decision to Admit Time: 16:42 Departure-Patient Inst. Referrals: NO,LOCAL PHYSICIAN (PCP/Family) Primary Care Physician MCKAYLA ALVAREZ APRN Jun 22, 2021 14:14
[2021-06-22] MEDS ORDERED: fentaNYL INJ 100 MCG/2 ML AMP IVP ONE ×3 (14:15→16:45)
[2021-06-22] MEDS ORDERED: LACTATED RINGERS 1,000 ML IV SCH (14:15)
[2021-06-22 14:39] LABS: BASOPHILS # (AUTO) 0.1 10^3/uL (0.0-0.1); BASOPHILS % (AUTO) 0 % (0-10); EOSINOPHILS % (AUTO) 0 % (0-10); HEMATOCRIT 38 % (35-52); HEMOGLOBIN 12.8 g/dL (11.5-16.0); LYMPHOCYTES % (AUTO) 8 % (12-44); MEAN CORPUSCULAR HEMOGLOBIN 31 pg (25-34); MEAN CORPUSCULAR HGB CONC 34 g/dL (32-36); MEAN CORPUSCULAR VOLUME 91 fL (80-99); MEAN PLATELET VOLUME 9.7 fL (9.0-12.2); MONOCYTES # (AUTO) 0.7 10^3/uL (0.0-1.0); MONOCYTES % (AUTO) 3 % (0-12); NEUTROPHILS # (AUTO) 20.7 10^3/uL (1.8-7.8); NEUTROPHILS % (AUTO) 88 % (42-75); PLATELET COUNT 335 10^3/uL (130-400); WHITE BLOOD COUNT 23.6 10^3/uL (4.3-11.0)
[2021-06-22 14:48] LABS: ALBUMIN 3.8 GM/DL (3.2-4.5)
[2021-06-22 14:49] LABS: CHLORIDE 101 MMOL/L (98-107); POTASSIUM 3.2 MMOL/L (3.6-5.0); SODIUM 135 MMOL/L (135-145)
[2021-06-22 14:50] LABS: CALCIUM 9.2 MG/DL (8.5-10.1)
[2021-06-22 14:51] LABS: GLUCOSE 104 MG/DL (70-105)
[2021-06-22 14:52] LABS: CARBON DIOXIDE 25 MMOL/L (21-32)
[2021-06-22 14:53] LABS: BILIRUBIN,TOTAL 0.9 MG/DL (0.1-1.0)
[2021-06-22 14:54] LABS: ALKALINE PHOSPHATASE 76 U/L (40-136); NEUTROPHILS % (MANUAL) 82 %
[2021-06-22 14:55] LABS: BAND NEUTROPHILS 9 %; BASOPHILS % (MANUAL) 0 %; CREATININE SERUM 0.74 MG/DL (0.60-1.30); EOSINOPHILS % (MANUAL) 0 %; GFR ESTIMATED 96; LYMPHOCYTES % (MANUAL) 8 %; MONOCYTES % (MANUAL) 1 %; RBC MORPH NORMAL
[2021-06-22 14:56] LABS: BUN/CREATININE RATIO 14
[2021-06-22 14:58] LABS: ALANINE AMINOTRANSFERASE 19 U/L (0-55)
[2021-06-22] MEDS ORDERED: NS 100 ML (IVPB) BAG IV ONE (15:15)
[2021-06-22] MEDS ORDERED: IOHEXOL 350 MG/ML 100 ML (OMNIPAQUE 350) VIAL IV ONE (15:15)
[2021-06-22] MEDS ORDERED: HOLD METFORMIN - RECEIVED CONTRAST 20 ML VIAL IV SCH (15:15)
[2021-06-22] MEDS ORDERED: CATHETER FLUSH 10 ML SYR IV PRN (15:15)
--- NOTE | 2021-06-22 15:47 | Diagnostic Imaging Report ---
PROCEDURE: CT abdomen and pelvis with contrast, rule out appendicitis. TECHNIQUE: Multiple contiguous axial images were obtained through the abdomen and pelvis after the administration of intravenous contrast. All CT scans use one or more of the following dose optimizing techniques: automated exposure control, MA and/or KvP adjustment based on patient size and exam type or iterative reconstruction. INDICATION: Leukocytosis. No prior studies are available for comparison. The lung bases are clear. No discrete liver mass is identified. Intrahepatic bile ducts are slightly prominent however this could be owing to postcholecystectomy. The pancreas and spleen are unremarkable. No adrenal mass is detected. Kidneys are unremarkable. Aorta is nonaneurysmal. There are some fluid-filled and distended small bowel loops throughout the abdomen. There are also multiple decompressed normal caliber small bowel loops. There is some fluid throughout the right colon, some moderate gaseous distention of the right colon and transverse colon. The descending colon is decompressed as is the sigmoid. The appendix is not visualized with clarity. There is some free fluid in the pelvis. The uterus and ovaries are unremarkable. The bladder is decompressed and does show some wall thickening. There is some questionable stranding adjacent to the dome of the bladder and possibility of cystitis cannot be entirely excluded. No free air is identified. IMPRESSION: 1. Nonspecific fluid-filled distention of small bowel. There are also some normal caliber small bowel loops. While this could represent enteritis, possibility of obstruction cannot be entirely excluded. A small bowel study would be useful for further evaluation. 2. Nonvisualized appendix. 3. Decompressed but thick-walled bladder with some surrounding inflammation, raising question of cystitis. Dictated by: Dictated on workstation # [id number]
[2021-06-22 16:18] LABS: CLARITY,URINE SL CLOUDY; COLOR,URINE AMBER; GLUCOSE, URINE (UA) TRACE (NEGATIVE); KETONES,URINE NEGATIVE (NEGATIVE); LEUKOCYTE ESTERASE ,URINE 2+ (NEGATIVE); NITRITE,URINE POSITIVE (NEGATIVE); PROTEIN,URINE 1+ (NEGATIVE)
[2021-06-22 16:22] LABS: BILIRUBIN,URINE 1+ (NEGATIVE)
[2021-06-22 16:25] LABS: AMORPHOUS SEDIMENT,UR MOD AMOR PHOSPHATE /LPF; BACTERIA,URINE FEW /HPF; RBC,URINE RARE /HPF
[2021-06-22 16:29] LABS: AMPHETAMINE SCREEN, URINE POSITIVE (NEGATIVE); BARBITURATE SCREEN URINE NEGATIVE (NEGATIVE); BENZODIAZEPINES SCREEN URINE NEGATIVE (NEGATIVE); CANNABINOID SCREEN, URINE POSITIVE (NEGATIVE); COCAINE SCREEN URINE NEGATIVE (NEGATIVE); METHADONE STAT NEGATIVE (NEGATIVE); METHAMPHETAMINE SCREEN URINE S POSITIVE (NEGATIVE); OPIATE SCREEN URINE NEGATIVE (NEGATIVE); OXYCODONE STAT NEGATIVE (NEGATIVE); PROPOXYPHENE STAT NEGATIVE (NEGATIVE); TRICYCLIC ANTIDEPRESSANTS SCRE NEGATIVE (NEGATIVE)
[2021-06-22] MEDS ORDERED: cefTRIAXone 1,000 MG in WATER (STERILE) FOR INJECTION 10 ML IV ONE (16:30)
[2021-06-22] MEDS ORDERED: ONDANSETRON 4 MG/2 ML (SDV) Z0FRAN IVP ONE (16:45)
--- NOTE | 2021-06-22 17:18 | History & Physical-Hospitalist ---
History of Present Illness HPI/Chief Complaint Pt is a 25yoCF who presented to the ER duet o abdominal pain. She states it is in her right lower quadrant and it started abruptly last night. She has had nausea as well. She is laying in bed and appears quite uncomfortable. She has a history of IBS but symptoms are not like her typical IBS pain. CT abdomen was done which showed cystitis but could not visualize the appendix. She was also found to have a UTI and was to be admitted for IV abx for sepsis but upon exam she had a rigid abdomen and was guarding so decision made to take to the OR for diagnostic lap tonight. Source: patient Date Seen 06/22/21 Time Seen by a Provider: 17:11 Attending Physician Arden Taylor MD PCP No,Local Physician Referring Physician Date of Admission Jun 22, 2021 at 16:40 Home Medications & Allergies Home Medications Reviewed patient Home Medication Reconciliation performed by pharmacy medication reconciliations field operations technician and/or nursing. Patients Allergies have been reviewed. Allergies Allergies Coded Allergies No Known Drug Allergies (Unverified09/20/19) Past Ohorcig-Ybjcrn-Kdbtnz Hx Patient Social History Tobacco Use?: Yes Tobacco type used: Cigarettes Smoking Status: Current Everyday Smoker Substance use?: Yes Substance type: Methamphetamine, Marijuana Alcohol Use?: No Pt feels they are or have been: No Immunizations Up To Date PED Vaccines UTD: Yes Seasonal Allergies Seasonal Allergies: Yes Current Status status: No Advance Directives: No Communicates: Verbally Primary Language: Prydeinig Preferred Spoken Language: Prydeinig Is interpretation needed?: No Implanted or Applied Medical D: None Past Medical History Surgeries: Gallbladder Irregular Heartbeat, Palpitations Headaches /Migraines Chronic Constipation, Chronic Diarrhea, Irritable Bowel Sleep Difficulties, Anxiety, PTSD, Suicide Attempts, Bipolar, Depression Blood Disorders: No Family Medical History Reviewed Nursing Family Hx No Pertinent Family Hx Review of Systems Constitutional: No chills; fever EENTM: no symptoms reported Respiratory: No cough, No short of breath Cardiovascular: No chest pain, No palpitations Gastrointestinal: abdominal pain; No constipation, No diarrhea; nausea Genitourinary: no symptoms reported Musculoskeletal: no symptoms reported Psychiatric/Neurological: No Symptoms Reported Physical Exam Physical Exam Vital Signs Vital Signs - First Documented 06/22/21 13:57 Temp 36.8 Pulse 129 Resp 20 B/P (MAP) 115/82 (93) Pulse Ox 99 O2 Delivery Room Air Capillary Refill : Height, Weight, BMI Height: 5'2" Weight: 170lbs. oz. [id number]; 22.00 BMI Method: General Appearance: No Apparent Distress, WD/WN HEENT: PERRL/EOMI, Moist Mucous Membranes; No Scleral Icterus (L), No Scleral Icterus (R) Neck: Normal Inspection, Supple Respiratory: Lungs Clear, No Accessory Muscle Use, No Respiratory Distress Cardiovascular: Regular Rate, Rhythm, No JVD, No Murmur Gastrointestinal: Distended, Guarding, Rebound, Tenderness (diffuse but worse in RLQ) Extremity: No Calf Tenderness, No Pedal Edema Neurologic/Psychiatric: Alert, Oriented x3, Normal Mood/Affect Skin: Normal Color, Warm/Dry Results Results/Procedures Labs Laboratory Tests 06/22/21 14:29 Patient resulted labs reviewed. Imaging: Reviewed Imaging Report Imaging [facility], [place] NAME: MAYURI JACKSON [facility] REC#: [id number] PT STATUS: REG ER : 1995 PHYSICIAN: MCKAYLA ALVAREZ APRN ADMIT DATE: 06/22/21/ER Signed Date of Exam:06/22/21 CT ABD/PELV W (APPENDICITIS) PROCEDURE: CT abdomen and pelvis with contrast, rule out appendicitis. TECHNIQUE: Multiple contiguous axial images were obtained through the abdomen and pelvis after the administration of intravenous contrast. All CT scans use one or more of the following dose optimizing techniques: automated exposure control, MA and/or KvP adjustment based on patient size and exam type or iterative reconstruction. INDICATION: Leukocytosis. No prior studies are available for comparison. The lung bases are clear. No discrete liver mass is identified. Intrahepatic bile ducts are slightly prominent however this could be owing to postcholecystectomy. The pancreas and spleen are unremarkable. No adrenal mass is detected. Kidneys are unremarkable. Aorta is nonaneurysmal. There are some fluid-filled and distended small bowel loops throughout the abdomen. There are also multiple decompressed normal caliber small bowel loops. There is some fluid throughout the right colon, some moderate gaseous distention of the right colon and transverse colon. The descending colon is decompressed as is the sigmoid. The appendix is not visualized with clarity. There is some free fluid in the pelvis. The uterus and ovaries are unremarkable. The bladder is decompressed and does show some wall thickening. There is some questionable stranding adjacent to the dome of the bladder and possibility of cystitis cannot be entirely excluded. No free air is identified. IMPRESSION: 1. Nonspecific fluid-filled distention of small bowel. There are also some normal caliber small bowel loops. While this could represent enteritis, possibility of obstruction cannot be entirely excluded. A small bowel study would be useful for further evaluation. 2. Nonvisualized appendix. 3. Decompressed but thick-walled bladder with some surrounding inflammation, raising question of cystitis. Dictated by: Dictated on workstation # [id number] Dict: 06/22/21 1532 Trans: 06/22/21 1558 [facility] [id number] Interpreted by: LEYLA RABAGO MD Electronically signed by: LEYLA RABAGO MD 06/22/21 1558 Assessment/Plan Admission Diagnosis Sepsis Admission Status: Inpatient Order (span 2 midnights) Reason for Inpatient Admission: see below Assessment and Plan Sepsis Does have UTI but also concerning abdominal exam for acute abdomen Discussed with patient and with Dr Nolan regarding exam findings, both a greeable to diagnostic lap tonight Continue on IV abx Await cultures methamphetamine use no acute needs, clinically significant Diagnosis/Problems Diagnosis/Problems (1) Acute abdomen (2) Sepsis Status: Acute Qualifiers: Sepsis type: sepsis due to unspecified organism Sepsis acute organ dys function status: without acute organ dysfunction Qualified Codes: A41.9 - Sepsis, unspecified organism (3) Urinary tract infection Status: Acute Qualifiers: Urinary tract infection type: acute cystitis Hematuria presence: without hematuria Qualified Codes: N30.00 - Acute cystitis without hematuria ARDEN TAYLOR MD Jun 22, 2021 17:18
[2021-06-22] MEDS ORDERED: HYDROmorphone 2 MG/ML VIAL (DILAUDID) IV ONE (17:30)
--- NOTE | 2021-06-22 17:36 | Consultation - Surgery ---
JINA MARIA 06/22/21 1736: History of Present Illness History of Present Illness Patient Consulted On(emily/time) 06/22/21 17:36 Time Seen by Provider: 17:30 History of Present Illness Information was attained in combination from the patient and her partner A 25yo female presented to the ER with a chief compliant of abdominal pain. The pain started in the middle of the night and she was unable to go back to sleep. Her pain became progressively worse, with Nausea. She describes the pain as burning and aching that came and went, but now the pain is constant. She says that all of her stomach hurts but points more so to the RLQ. She reports that nothing helps with the pain including fentanyl, and any movement or light touch to the are makes the pain worse. She has IBS which does not present with symptoms like this, and she had her gall bladder removed. CT of the abdomen and pelvis showed that the appendix could not be visualized, and Decompressed but thick-walled bladder with some surrounding inflammation, raising question of cystitis. Allergies and Home Medications Allergies Coded Allergies: No Known Drug Allergies (Unverified , 09/20/19) Patient Home Medication List Doxycycline Hyclate (Doxycycline Hyclate) 100 Mg Tablet, 100 MG PO BID Prescribed by: ISAIAH LUNA on 04/25/20 1003 Erythromycin Base (Erythromycin Opthalmic Ointment) 1 Gm Oint...g., 0 OP Q4H Prescribed by: SHERON HYDE on 06/13/15 1335 Hydrocodone/Acetaminophen (Lorcet 5-325 mg Tablet) 1 Each Tablet, 1 EACH PO Q4- 6HR PRN for PAIN-MODERATE Prescribed by: MCKAYLA ALVAREZ on 04/28/20 1059 Mupirocin (Mupirocin) 22 Gm Oint...g., 1 GM TP BID Prescribed by: MCKAYLA ALVAREZ on 04/28/20 1059 Neomycin/Polymyxin B Sulf/Hc (Tdngeidr-Gwcbhxlyf-Ti Ear Susp) 10 Ml Drops.susp, 10 ML OT BID Prescribed by: MCKAYLA ALVAREZ on 04/28/20 1059 Sulfamethoxazole/Trimethoprim (Bactrim Ds Tablet) 1 Each Tablet, 1 EACH PO BID Prescribed by: ISAIAH LUNA on 04/25/20 1003 Past Ybxcifd-Cwzpqp-Qmwgqx Hx Patient Social History Drug of Choice: occ cannibus Smoking Status: Current Everyday Smoker Type Used: Cigarettes 2nd Hand Smoke Exposure: Yes Recent Hopitalizations: No Alcohol Use?: No Substance type: Methamphetamine, Marijuana Have you traveled recently?: No Immunizations Up To Date Tetanus Booster (TDap): Less than 5yrs PED Vaccines UTD: Yes Seasonal Allergies Seasonal Allergies: Yes Surgeries History of Surgeries: No Surgeries: Gallbladder Respiratory History of Respiratory Disorde: No Cardiovascular History of Cardiac Disorders: Yes Cardiac Disorders: Irregular Heartbeat, Palpitations Neurological History of Neurological Disord: No Neurological Disorders: Headaches /Migraines Reproductive System Hx Reproductive Disorders: No Gastrointestinal Gastrointestinal Disorders: Chronic Constipation, Chronic Diarrhea, Irritable Bowel Musculoskeletal History of Musculoskeletal Dis: No Endocrine History of Endocrine Disorders: No HEENT History of HEENT Disorders: No (wears glasses) Cancer History of Cancer: No Psychosocial History of Psychiatric Problem: Yes Behavioral Health Disorders: Sleep Difficulties, Anxiety, PTSD, Suicide Attempts, Bipolar, Depression Integumentary History of Skin or Integumenta: No Blood Transfusions History of Blood Disorders: No Family Medical History Significant Family History: No Pertinent Family Hx Review of Systems-General Constitutional: chills, fever Respiratory: cough, short of breath Cardiovascular: No chest pain Gastrointestinal: abdominal pain, nausea; No vomiting Physical Exam-General Problems Physical Exam Vital Signs Vital Signs - First Documented 06/22/21 13:57 Temp 36.8 Pulse 129 Resp 20 B/P (MAP) 115/82 (93) Pulse Ox 99 O2 Delivery Room Air Capillary Refill : General Appearance: other (uncomfortable and in severe pain, but cooperative ) HEENT: PERRL/EOMI Neck: full range of motion, supple, normal inspection Respiratory: lungs clear, no respiratory distress, no accessory muscle use Cardiovascular: no JVD, no murmur, tachycardia Gastrointestinal: guarding, tenderness (all quadrants, but most tender in RLQ) Extremities: no pedal edema, no calf tenderness Neurologic/Psychiatric: alert, normal mood/affect, oriented x 3 Skin: normal color, warm/dry Data Review Labs Laboratory Tests 06/22/21 14:29: White Blood Count 23.6H, Red Blood Count 4.17, Hemoglobin 12.8, Hematocrit 38, Mean Corpuscular Volume 91, Mean Corpuscular Hemoglobin 31, Mean Corpuscular Hemoglobin Concent 34, Red Cell Distribution Width 12.7, Platelet Count 335, Mean Platelet Volume 9.7, Immature Granulocyte % (Auto) 0, Neutrophils (%) (Auto) 88H, Lymphocytes (%) (Auto) 8L, Monocytes (%) (Auto) 3, Eosinophils (%) (Auto) 0, Basophils (%) (Auto) 0, Neutrophils # (Auto) 20.7H, Lymphocytes # (Auto) 2.0, Monocytes # (Auto) 0.7, Eosinophils # (Auto) 0.0, Basophils # (Auto) 0.1, Immature Granulocyte # (Auto) 0.1, Neutrophils % (Manual) 82, Lymphocytes % (Manual) 8, Monocytes % (Manual) 1, Eosinophils % (Manual) 0, Basophils % (Manual) 0, Band Neutrophils 9, Blood Morphology Comment NORMAL, Sodium Level 135, Potassium Level 3.2L, Chloride Level 101, Carbon Dioxide Level 25, Anion Gap 9, Blood Urea Nitrogen 10, Creatinine 0.74, Estimat Glomerular Filtration Rate 96, BUN/Creatinine Ratio 14, Glucose Level 104, Calcium Level 9.2, Corrected Calcium 9.4, Total Bilirubin 0.9, Aspartate Amino Transf (AST/SGOT) 18, Alanine Aminotransferase (ALT/SGPT) 19, Alkaline Phosphatase 76, Total Protein 7.0, Albumin 3.8, Human Chorionic Gonadotropin, Quant < 5, Serum Test, Qualitative NEGATIVE 06/22/21 15:55: Urine Color AMBERH, Urine Clarity SL CLOUDY, Urine pH 7.0, Urine Specific [place] 1.025H, Urine Protein 1+H, Urine Glucose (UA) TRACEH, Urine Ketones NEGATIVE, Urine Nitrite POSITIVEH, Urine Bilirubin 1+H, Urine Urobilinogen 4.0, Urine Leukocyte Esterase 2+H, Urine RBC (Auto) 1+H, Urine RBC RARE, Urine WBC 10-25H, Urine Squamous Epithelial Cells 2-5, Urine Crystals PRESENTH, Urine Amorphous Sediment MOD KJ PHOSPHATEH, Urine Bacteria FEWH, Urine Casts NONE, Urine Mucus MODERATEH, Urine Culture Indicated YES, Urine Opiates Screen NEGATIVE, Urine Oxycodone Screen NEGATIVE, Urine Methadone Screen NEGATIVE, Urine Propoxyphene Screen NEGATIVE, Urine Barbiturates Screen NEGATIVE, Ur Tricyclic Antidepressants Screen NEGATIVE, Urine Phencyclidine Screen NEGATIVE, Urine Amphetamines Screen POSITIVEH, Urine Methamphetamines Screen POSITIVEH, Urine Benzodiazepines Screen NEGATIVE, Urine Cocaine Screen NEGATIVE, Urine Cannabinoids Screen POSITIVEH 06/22/21 16:41: Lactic Acid Level 0.85 Assessment/Plan Assessment/Plan Assessment/Plan Acute abdomen UTI cystitis Sepsis Methamphetamine use Wait for cultures, continue on antibiotics, treat her severe pain, NPO, may consider doing diagnostic laparoscopy tonight. JEANNE FONSECA DO 06/23/21 1312: History of Present Illness History of Present Illness Date Seen by Provider: Jun 22, 2021 History of Present Illness Patient is a 25-year-old female who presented to emergency department with abdominal pain that is diffuse. Patient states that it started the night before where it was coming and going. It continued to worsen having nausea as well. She is not having any emesis. She states the pain is now constant. It is all over her stomach. It was located in the left and right lower quadrants initially and was burning aching type pain. She states that movement makes it worse and laying still makes it better. Patient has not had any symptoms like this before. She does state that she does have IBS and maybe feels slightly like that. Patient had a CT scan of the abdomen pelvis which demonstrated a thickened wall of the bladder with surrounding inflammation raising question of cystitis there is also some dilated bowel and fluid-filled bowel which could be related to enteritis. The appendix was not well visualized. Her white count was elevated and urine was consistent with a urinary tract infection. Allergies and Home Medications Allergies Coded Allergies: No Known Drug Allergies (Unverified , 09/20/19) Patient Home Medication List Home Medication List Reviewed: Yes Doxycycline Hyclate (Doxycycline Hyclate) 100 Mg Tablet, 100 MG PO BID Prescribed by: ISAIAH ULNA on 04/25/20 1003 Erythromycin Base (Erythromycin Opthalmic Ointment) 1 Gm Oint...g., 0 OP Q4H Prescribed by: SHERON HYDE on 06/13/15 1335 Hydrocodone/Acetaminophen (Lorcet 5-325 mg Tablet) 1 Each Tablet, 1 EACH PO Q4- 6HR PRN for PAIN-MODERATE Prescribed by: MCKAYLA ALVAREZ on 04/28/20 1059 Mupirocin (Mupirocin) 22 Gm Oint...g., 1 GM TP BID Prescribed by: MCKAYLA ALVAREZ on 04/28/20 1059 Neomycin/Polymyxin B Sulf/Hc (Fzfcbcqu-Uveanaage-Wu Ear Susp) 10 Ml Drops.susp, 10 ML OT BID Prescribed by: MCKAYLA ALVAREZ on 04/28/20 1059 Sulfamethoxazole/Trimethoprim (Bactrim Ds Tablet) 1 Each Tablet, 1 EACH PO BID Prescribed by: ISAIAH LUNA on 04/25/20 1003 Past Evhifrn-Emouhj-Newbfe Hx Patient Social History Drug of Choice: Cannabis, meth Surgeries Surgeries: Gallbladder Respiratory History of Respiratory Disorde: No Cardiovascular History of Cardiac Disorders: No Neurological History of Neurological Disord: No Gastrointestinal Gastrointestinal Disorders: Irritable Bowel Reviewed Nursing Assessment Reviewed/Agree w Nursing PMH: Yes Family Medical History Significant Family History: No Pertinent Family Hx Review of Systems-General Constitutional: chills Respiratory: cough, short of breath Gastrointestinal: abdominal pain, nausea; No vomiting Physical Exam-General Problems Physical Exam General Appearance: thin, other (uncomfortable and in severe pain, but cooperative ) HEENT: PERRL/EOMI, normal ENT inspection Neck: non-tender, supple Respiratory: chest non-tender, no respiratory distress, no accessory muscle use Cardiovascular: no JVD, tachycardia Gastrointestinal: guarding (Voluntary), tenderness (all quadrants, left and right lower quadrants slightly more tender than upper abdomen) Rectal: deferred Back: CVA tenderness (R), CVA tenderness (L) Extremities: no pedal edema, no calf tenderness Neurologic/Psychiatric: alert, oriented x 3 Skin: normal color, warm/dry Lymphatic: no adenopathy Assessment/Plan Assessment/Plan Assessment/Plan Abdominal paindiffuse, urinary tract infection, enteritis, methamphetamine use, marijuana use Patient on abdominal exam has diffuse tenderness. I do not feel that specifically in the right lower quadrant on my exam. She is tender. I think this is more likely either a uro-liquid compounder or enteritis process. Could also be appendicitis since the appendix is not visualized on CT scan. Patient is taking clears at this time so will make n.p.o. she is on Rocephin and Flagyl. We will repeat labs in the morning. Will reevaluate in the morning and consider diagnostic laparoscopy depending on physical exam and overall con dition. Supervisory-Addendum Brief Verification & Attestation Participated in pt care: history, MDM, physical Personally performed: exam, history, MDM, supervision of care Care discussed with: Medical Student Procedures: n/a Results interpretation: Verified all documentation Verification and Attestation of Medical Student E/M Service A medical student performed and documented this service in my presence. I reviewed and verified all information documented by the medical student and made modifications to such information, when appropriate. I personally performed the physical exam and medical decision making. Jeanne Fonseca, Jun 22, 2021,19:24 JINA MARIA Jun 22, 2021 17:36 JEANNE FONSECA DO Jun 23, 2021 13:12
[2021-06-22 18:40] VITALS: BP 110/60
[2021-06-22] MEDS: LACTATED RINGERS 1,000 ML IV SCH (20:12)
[2021-06-22] MEDS ORDERED: KCL 20 MEQ TAB (K-DUR) PO ONE ×2 (20:30→22:30)
[2021-06-22] MEDS: fentaNYL INJ 100 MCG/2 ML AMP IVP PRN (20:55)
[2021-06-22] MEDS: metroNIDAZOLE 500 MG/100 ML IVPB (PRE-MIX) IV SCH (22:07)
[2021-06-22] MEDS ORDERED: ONDANSETRON 4 MG/2 ML (SDV) Z0FRAN IVP PRN (23:00)
[2021-06-23] MEDS: fentaNYL INJ 100 MCG/2 ML AMP IVP PRN ×4 (03:33→21:28)
[2021-06-23 05:28] LABS: BASOPHILS # (AUTO) 0.1 10^3/uL (0.0-0.1); BASOPHILS % (AUTO) 0 % (0-10); EOSINOPHILS # (AUTO) 0.2 10^3/uL (0.0-0.3); EOSINOPHILS % (AUTO) 1 % (0-10); HEMATOCRIT 33 % (35-52); HEMOGLOBIN 10.8 g/dL (11.5-16.0); LYMPHOCYTES # (AUTO) 2.6 10^3/uL (1.0-4.0); LYMPHOCYTES % (AUTO) 14 % (12-44); MEAN CORPUSCULAR HEMOGLOBIN 30 pg (25-34); MEAN CORPUSCULAR HGB CONC 33 g/dL (32-36); MEAN CORPUSCULAR VOLUME 93 fL (80-99); MEAN PLATELET VOLUME 9.9 fL (9.0-12.2); MONOCYTES # (AUTO) 0.8 10^3/uL (0.0-1.0); MONOCYTES % (AUTO) 4 % (0-12); NEUTROPHILS # (AUTO) 14.7 10^3/uL (1.8-7.8); NEUTROPHILS % (AUTO) 80 % (42-75); PLATELET COUNT 264 10^3/uL (130-400); WHITE BLOOD COUNT 18.4 10^3/uL (4.3-11.0)
[2021-06-23] MEDS: LACTATED RINGERS 1,000 ML IV SCH ×4 (05:35→17:27)
[2021-06-23] MEDS: metroNIDAZOLE 500 MG/100 ML IVPB (PRE-MIX) IV SCH ×3 (05:35→21:28)
[2021-06-23 05:38] LABS: POTASSIUM 4.4 MMOL/L (3.6-5.0)
[2021-06-23 05:40] LABS: CALCIUM 8.8 MG/DL (8.5-10.1)
[2021-06-23 05:44] LABS: CREATININE SERUM 0.62 MG/DL (0.60-1.30)
[2021-06-23] MEDS: KCL 20 MEQ TAB (K-DUR) PO SCH (06:27)
[2021-06-23] MEDS: POTASSIUM CL 10MEQ/50ML IVPB 50 ML IV SCH (06:27)
[2021-06-23] MEDS: MAGNESIUM 1 GM/100 ML IVPB 100 ML IV SCH (06:27)
--- NOTE | 2021-06-23 07:10 | Progress Note - Surgery ---
JINA MARIA 06/23/21 0710: Subjective Time Seen by a Provider: 07:10 Subjective/Events-last exam Pt reports doing a lot better with pain control, she was sleeping comfortable and when she was awake she was able to answer my questions without being in as much pain as she was yesterday. She points to her bladder that it still hurts the most and her RLQ, with diffuse abdominal pain. She normal has one bowel movement a week and reports that she is passing gas, and she was able to urinate twice last night and she denied any burning with urination since she was admi tted. Review of Systems General: No Chills; Other (gets hot) HEENT: Head Aches; No Visual Changes Pulmonary: Cough Cardiovascular: No: Chest Pain Gastrointestinal: No: Nausea, Vomiting Genitourinary: No Dysuria Focused Exam Lactate Level 06/22/21 16:41: Lactic Acid Level 0.85 Objective Exam Vital Signs Date Time Temp Pulse Resp B/P (MAP) Pulse Ox O2 Delivery O2 Flow Rate FiO2 06/23/21 04:00 96 22 91/62 95 Room Air 06/23/21 01:00 101 06/23/21 00:00 101 26 90/60 99 Room Air 06/23/21 00:00 36.4 95 24 94/59 99 Room Air 06/22/21 23:47 97 Room Air 06/22/21 21:00 99 Room Air 06/22/21 20:00 36.0 99 22 99/61 96 Room Air 06/22/21 19:46 38.0 112 28 99/66 98 Room Air 06/22/21 19:00 111 06/22/21 18:58 38.0 126 19 90/65 97 Room Air 06/22/21 18:40 110 18 110/60 97 06/22/21 18:12 123 20 110/72 95 Room Air 06/22/21 17:52 130 18 109/68 100 Room Air 06/22/21 17:00 122 18 110/69 100 Room Air 06/22/21 15:36 106 11/64 96 Room Air 06/22/21 14:58 98 106/62 98 Room Air 06/22/21 13:57 36.8 129 20 115/82 (93) 99 Room Air I & O 06/23/21 07:00 Intake Total 0 ml Balance 0 ml Capillary Refill : General Appearance: No Apparent Distress, WD/WN, Other (pt is a lot more comfortable then she was yesterday) HEENT: PERRL/EOMI Neck: Normal Inspection, Supple Respiratory: Lungs Clear, No Accessory Muscle Use, No Respiratory Distress Cardiovascular: Regular Rate, Rhythm, No JVD, No Murmur Gastrointestinal: guarding, tenderness (most tender near bladder), other (she still has pain diffusely with palpation, but she tolerates it more than she did yesterday) Extremity: No Calf Tenderness, No Pedal Edema Neurologic/Psychiatric: Alert, Oriented x3, Normal Mood/Affect Skin: Normal Color, Warm/Dry Results Lab Laboratory Tests 06/22/21 14:29: White Blood Count 23.6H, Red Blood Count 4.17, Hemoglobin 12.8, Hematocrit 38, Mean Corpuscular Volume 91, Mean Corpuscular Hemoglobin 31, Mean Corpuscular Hemoglobin Concent 34, Red Cell Distribution Width 12.7, Platelet Count 335, Mean Platelet Volume 9.7, Immature Granulocyte % (Auto) 0, Neutrophils (%) (Auto) 88H, Lymphocytes (%) (Auto) 8L, Monocytes (%) (Auto) 3, Eosinophils (%) (Auto) 0, Basophils (%) (Auto) 0, Neutrophils # (Auto) 20.7H, Lymphocytes # (Auto) 2.0, Monocytes # (Auto) 0.7, Eosinophils # (Auto) 0.0, Basophils # (Auto) 0.1, Immature Granulocyte # (Auto) 0.1, Neutrophils % (Manual) 82, Lymphocytes % (Manual) 8, Monocytes % (Manual) 1, Eosinophils % (Manual) 0, Basophils % (Manual) 0, Band Neutrophils 9, Blood Morphology Comment NORMAL, Sodium Level 135, Potassium Level 3.2L, Chloride Level 101, Carbon Dioxide Level 25, Anion Gap 9, Blood Urea Nitrogen 10, Creatinine 0.74, Estimat Glomerular Filtration Rate 96, BUN/Creatinine Ratio 14, Glucose Level 104, Calcium Level 9.2, Corrected Calcium 9.4, Total Bilirubin 0.9, Aspartate Amino Transf (AST/SGOT) 18, Alanine Aminotransferase (ALT/SGPT) 19, Alkaline Phosphatase 76, Total Protein 7.0, Albumin 3.8, Human Chorionic Gonadotropin, Quant < 5, Serum Test, Qualitative NEGATIVE 06/22/21 15:55: Urine Color AMBERH, Urine Clarity SL CLOUDY, Urine pH 7.0, Urine Specific Tornado 1.025H, Urine Protein 1+H, Urine Glucose (UA) TRACEH, Urine Ketones NEGATIVE, Urine Nitrite POSITIVEH, Urine Bilirubin 1+H, Urine Urobilinogen 4.0, Urine Leukocyte Esterase 2+H, Urine RBC (Auto) 1+H, Urine RBC RARE, Urine WBC 10-25H, Urine Squamous Epithelial Cells 2-5, Urine Crystals PRESENTH, Urine Amorphous Sediment MOD KJ PHOSPHATEH, Urine Bacteria FEWH, Urine Casts NONE, Urine Mucus MODERATEH, Urine Culture Indicated YES, Urine Opiates Screen NEGATIVE, Urine Oxycodone Screen NEGATIVE, Urine Methadone Screen NEGATIVE, Urine Propoxyphene Screen NEGATIVE, Urine Barbiturates Screen NEGATIVE, Ur Tricyclic Antidepressants Screen NEGATIVE, Urine Phencyclidine Screen NEGATIVE, Urine Amphetamines Screen POSITIVEH, Urine Methamphetamines Screen POSITIVEH, Urine Benzodiazepines Screen NEGATIVE, Urine Cocaine Screen NEGATIVE, Urine Cannabinoids Screen POSITIVEH 06/22/21 16:41: Lactic Acid Level 0.85 06/23/21 05:08: White Blood Count 18.4H, Red Blood Count 3.55L, Hemoglobin 10.8L, Hematocrit 33L , Mean Corpuscular Volume 93, Mean Corpuscular Hemoglobin 30, Mean Corpuscular Hemoglobin Concent 33, Red Cell Distribution Width 12.6, Platelet Count 264, Me an Platelet Volume 9.9, Immature Granulocyte % (Auto) 0, Neutrophils (%) (Auto) 80H, Lymphocytes (%) (Auto) 14, Monocytes (%) (Auto) 4, Eosinophils (%) (Auto) 1, Basophils (%) (Auto) 0, Neutrophils # (Auto) 14.7H, Lymphocytes # (Auto) 2.6, Monocytes # (Auto) 0.8, Eosinophils # (Auto) 0.2, Basophils # (Auto) 0.1, Immature Granulocyte # (Auto) 0.1, Sodium Level 133L, Potassium Level 4.4, Chloride Level 104, Carbon Dioxide Level 20L, Anion Gap 9, Blood Urea Nitrogen 6L, Creatinine 0.62, Estimat Glomerular Filtration Rate 118, BUN/Creatinine Ratio 10, Glucose Level 76, Calcium Level 8.8 Assessment/Plan Assessment/Plan Assessment/Plan SBO UTI Cystitis Sepsis Methamphetamine use Wait for cultures, continue on antibiotics, treat her severe pain which is well controlled today, NPO seems to be helping a lot with her pain. Did not perform diagnostic laparoscopy yesterday night, and will continue to monitor her for an additional day. Her WBC has dropped from 23.6 to 18.4. DORIAN NOLAN DO 06/23/21 1339: Subjective Date Seen by a Provider: Jun 23, 2021 Subjective/Events-last exam Patient feeling better today. She is still with pain but slightly better under control and now primarily in the left and right lower quadrants. Patient still some slight nausea no emesis. Her white count slightly dropped. Patient is passing flatus. No bowel movement. Denies any fever sweats chills shortness of breath or chest pain at this time. Objective Exam General Appearance: Thin, Other (pt is a lot more comfortable then she was yesterday) HEENT: PERRL/EOMI, Normal ENT Inspection Neck: Normal Inspection, Supple Respiratory: Chest Non Tender, No Accessory Muscle Use, No Respiratory Distress Cardiovascular: Regular Rate, Rhythm, No JVD Gastrointestinal: No guarding; tenderness (Bilateral lower quadrants) Extremity: No Calf Tenderness, No Pedal Edema Neurologic/Psychiatric: Alert, Oriented x3, Normal Mood/Affect Skin: Normal Color, Warm/Dry Lymphatic: No Adenopathy Other comments Bilateral CVA tenderness Assessment/Plan Assessment/Plan Assessment/Plan Abdominal pain was diffuse now primarily in the left and right lower quadrant. UTI Enteritis Cystitis Methamphetamine and cannabis use Patient feeling slightly better. Slight drop in white blood cell count. Her abdominal pain is now primarily in the lower quadrants and with CVA tenderness bilaterally. Feel this could be a urological system problem. Cannot exclude appendicitis due to the CT scan not being able to visualize the appendix. Still considering diagnostic laparoscopy. If patient not with any significant improvement tomorrow we will plan on doing diagnostic laparoscopy. Keep patient n.p.o. continue Rocephin and Flagyl and continue IV fluids. Supervisory-Addendum Brief Verification & Attestation Participated in pt care: history, MDM, physical Personally performed: exam, history, MDM, supervision of care Care discussed with: Medical Student Procedures: n/a Results interpretation: Verified all documentation Verification and Attestation of Medical Student E/M Service A medical student performed and documented this service in my presence. I reviewed and verified all information documented by the medical student and made modifications to such information, when appropriate. I personally performed the physical exam and medical decision making. Dorian Nolan, Jun 23, 2021,13:40 JINA MARIA Jun 23, 2021 07:10 DORIAN NOLAN DO Jun 23, 2021 13:39
--- NOTE | 2021-06-23 10:06 | Progress Note - Hospitalist ---
Subjective HPI/CC On Admission Date Seen by Provider: Jun 23, 2021 Time Seen by Provider: 10:01 Pt is a 25yoCF who presented to the ER duet o abdominal pain. She states it is in her right lower quadrant and it started abruptly last night. She has had nausea as well. She is laying in bed and appears quite uncomfortable. She has a history of IBS but symptoms are not like her typical IBS pain. CT abdomen was done which showed cystitis but could not visualize the appendix. She was also found to have a UTI and was to be admitted for IV abx for sepsis but upon exam she had a rigid abdomen and was guarding so decision made to take to the OR for diagnostic lap tonight. Subjective/Events-last exam Pt reports persistent pain in her lower abdomen. Pain improved with fentanyl but worse with any movement. Focused Exam Lactate Level 06/22/21 16:41: Lactic Acid Level 0.85 Objective Exam Vital Signs Vital Signs Date Time Temp Pulse Resp B/P (MAP) Pulse Ox O2 Delivery O2 Flow Rate FiO2 06/23/21 08:23 36.4 92 25 85/56 100 Room Air Capillary Refill : Less Than 3 Seconds General Appearance: No Apparent Distress, Thin Respiratory: Lungs Clear, No Respiratory Distress Cardiovascular: Regular Rate, Rhythm, No Murmur Gastrointestinal: Abnormal Bowel Sounds (quiet), Guarding, Tenderness (lower abdomen) Neurologic/Psychiatric: Alert, Oriented x3 Results/Procedures Lab Laboratory Tests 06/22/21 14:29 06/23/21 05:08 Patient resulted labs reviewed. Imaging: Reviewed Imaging Report Assessment/Plan Assessment and Plan Assess & Plan/Chief Complaint Sepsis UTI UA consisent with UTI Exam remains concerning for appendicitis Surgery consulted, appreciate recs- considering diagnostic lap Continue on IV abx Await cultures- UA just showing coag negative staph methamphetamine use no acute needs, clinically significant DVT ppx:: SCDs only for possible surgery Diagnosis/Problems Diagnosis/Problems (1) Acute abdomen (2) Sepsis Status: Acute Qualifiers: Sepsis type: sepsis due to unspecified organism Sepsis acute organ dysfunction status: without acute organ dysfunction Qualified Codes: A41.9 - Sepsis, unspecified organism (3) Urinary tract infection Status: Acute Qualifiers: Urinary tract infection type: acute cystitis Hematuria presence: without hematuria Qualified Codes: N30.00 - Acute cystitis without hematuria ARDEN VALENTIN MD Jun 23, 2021 10:06
[2021-06-23] MEDS ORDERED: cefTRIAXone 1,000 MG/SWFI 10 ML IV PUSH IV SCH ×2 (19:00)
[2021-06-24] MEDS: fentaNYL INJ 100 MCG/2 ML AMP IVP PRN ×3 (01:01→08:30)
[2021-06-24] MEDS: LACTATED RINGERS 1,000 ML IV SCH (03:38)
[2021-06-24 05:18] LABS: HEMATOCRIT 30 % (35-52); HEMOGLOBIN 9.8 g/dL (11.5-16.0); MEAN CORPUSCULAR HEMOGLOBIN 30 pg (25-34); MEAN CORPUSCULAR HGB CONC 33 g/dL (32-36); MEAN CORPUSCULAR VOLUME 93 fL (80-99); MEAN PLATELET VOLUME 9.9 fL (9.0-12.2); PLATELET COUNT 259 10^3/uL (130-400); WHITE BLOOD COUNT 12.5 10^3/uL (4.3-11.0)
[2021-06-24 05:36] LABS: POTASSIUM 3.8 MMOL/L (3.6-5.0)
[2021-06-24] MEDS: MAGNESIUM 1 GM/100 ML IVPB 100 ML IV SCH (05:36)
[2021-06-24] MEDS: metroNIDAZOLE 500 MG/100 ML IVPB (PRE-MIX) IV SCH (05:36)
[2021-06-24] MEDS: KCL 20 MEQ TAB (K-DUR) PO SCH (05:36)
[2021-06-24] MEDS: POTASSIUM CL 10MEQ/50ML IVPB 50 ML IV SCH (05:37)
[2021-06-24 05:38] LABS: CALCIUM 8.6 MG/DL (8.5-10.1)
[2021-06-24 05:42] LABS: CREATININE SERUM 0.57 MG/DL (0.60-1.30)
--- NOTE | 2021-06-24 07:17 | Progress Note - Surgery ---
JINA MARIA 06/24/21 0717: Subjective Time Seen by a Provider: 07:00 Subjective/Events-last exam reports no improvements in abdominal pain at the same location as yesterday, points to lower quadrants and bladder. Feels more sick to the stomach but no N/V, no bowel movement, CP, SOB, fever, or chills. Is passing gas and her abdominal pain is worse with movement. She also reported blood in the urine once yesterday. Focused Exam Lactate Level 06/22/21 16:41: Lactic Acid Level 0.85 Objective Exam Vital Signs Date Time Temp Pulse Resp B/P (MAP) Pulse Ox O2 Delivery O2 Flow Rate FiO2 06/24/21 04:00 78 22 Room Air 06/24/21 01:00 72 06/24/21 00:00 78 22 92/59 Room Air 06/23/21 21:00 100 Room Air 06/23/21 20:00 81 22 87/53 Room Air 06/23/21 20:00 36.6 06/23/21 19:00 90 06/23/21 15:38 36.4 93 12 96/60 98 Room Air 06/23/21 12:55 88 06/23/21 12:26 36.5 97 14 101/62 100 Room Air 06/23/21 08:23 36.4 92 25 85/56 100 Room Air 06/23/21 08:05 100 Room Air 06/23/21 07:55 37.3 100 19 96/24 100 Room Air I & O 06/24/21 07:00 Intake Total 0 ml Output Total 125 ml Balance -125 ml Capillary Refill : Less Than 3 Seconds General Appearance: Thin, Other (pt is comfortable at rest, and can ambulate on her own with mild pain) HEENT: PERRL/EOMI, Normal ENT Inspection Neck: Normal Inspection, Supple Respiratory: Chest Non Tender, No Accessory Muscle Use, No Respiratory Distress Cardiovascular: Regular Rate, Rhythm, No JVD Gastrointestinal: other (abdomen is tender mostly in the Lower quadrants and near bladder but is much improved, can tolerate palpation) Extremity: No Calf Tenderness, No Pedal Edema Neurologic/Psychiatric: Alert, Oriented x3, Normal Mood/Affect Skin: Normal Color, Warm/Dry Lymphatic: No Adenopathy Results Lab Laboratory Tests 06/24/21 05:10: White Blood Count 12.5H, Red Blood Count 3.22L, Hemoglobin 9.8L, Hematocrit 30L, Mean Corpuscular Volume 93, Mean Corpuscular Hemoglobin 30, Mean Corpuscular Hemoglobin Concent 33, Red Cell Distribution Width 12.3, Platelet Count 259, Mean Platelet Volume 9.9, Sodium Level 134L, Potassium Level 3.8, Chloride Level 105, Carbon Dioxide Level 20L, Anion Gap 9, Blood Urea Nitrogen 5L, Creatinine 0.57L, Estimat Glomerular Filtration Rate 130, BUN/Creatinine Ratio 9, Glucose L evel 73, Calcium Level 8.6 Microbiology 06/22/21 Blood Culture - Preliminary, Resulted No growth 06/22/21 Urine Culture - Preliminary, Resulted Probable Coag Negative Staph Assessment/Plan Assessment/Plan Assessment/Plan Abdominal pain was diffuse now primarily in the left and right lower quadrant. UTI Enteritis Cystitis Methamphetamine and cannabis use Patient is feeling about the same as yesterday. New symptoms of blood in the urine that occurred once yesterday. Drop in WBC from 18.4 to 12.5. Her abdominal pain is primarily in the lower quadrants and in the bladder but greatly improved over the last two days, so this could be a urological system problem. Pt will be discharged today with antibiotics. DORIAN NOLAN DO 06/24/21 1118: Subjective Subjective/Events-last exam Patient is upset. She is got potassium running through her IV and having pain at the IV site. Patient reports some improvement in lower abdominal pain. Still discomfort with movement. She is passing flatus. She states that she had some blood in her urine yesterday. Patient states she is leaving the hospital now. Her white blood cell count has gone down to 12. 5. She has been afebrile. She denies any nausea vomiting fever sweats chills shortness of breath or chest pain at this time. Objective Exam General Appearance: Anxious, Thin, Other (pt is comfortable at rest, and can move with mild pain) HEENT: PERRL/EOMI, Normal ENT Inspection Neck: Normal Inspection, Supple Respiratory: Chest Non Tender, No Accessory Muscle Use, No Respiratory Distress Cardiovascular: Regular Rate, Rhythm, No JVD Gastrointestinal: soft, other (Patient with lower abdominal discomfort very minimal compared to previous exams) Extremity: Normal Inspection, No Calf Tenderness Neurologic/Psychiatric: Alert, Oriented x3 Skin: Normal Color, Warm/Dry Lymphatic: No Adenopathy Assessment/Plan Assessment/Plan Assessment/Plan Abdominal pain was diffuse now primarily in the left and right lower quadrant- improved compared to yesterday UTI Enteritis Cystitis-hematuria Methamphetamine and cannabis use Patient on exam is anxious but abdominal exam improved compared to yesterday. Minimal tenderness in the lower abdomen. Patient states she is not staying any longer she is leaving AMA. Patient encouraged to take antibiotics. She demonstrates understanding of possible outcomes of leaving. Supervisory-Addendum Brief Verification & Attestation Participated in pt care: history, MDM, physical Personally performed: exam, history, MDM, supervision of care Care discussed with: Medical Student Procedures: n/a Results interpretation: Verified all documentation Verification and Attestation of Medical Student E/M Service A medical student performed and documented this service in my presence. I reviewed and verified all information documented by the medical student and made modifications to such information, when appropriate. I personally performed the physical exam and medical decision making. Dorian Nolan, Jun 24, 2021,11:18 JINA MARIA Jun 24, 2021 07:17 DORIAN NOLAN DO Jun 24, 2021 11:18
--- NOTE | 2021-06-24 09:13 | Progress Note - Hospitalist ---
Subjective HPI/CC On Admission Date Seen by Provider: Jun 24, 2021 Time Seen by Provider: 09:12 Pt is a 25yoCF who presented to the ER duet o abdominal pain. She states it is in her right lower quadrant and it started abruptly last night. She has had nausea as well. She is laying in bed and appears quite uncomfortable. She has a history of IBS but symptoms are not like her typical IBS pain. CT abdomen was done which showed cystitis but could not visualize the appendix. She was also found to have a UTI and was to be admitted for IV abx for sepsis but upon exam she had a rigid abdomen and was guarding so decision made to take to the OR for diagnostic lap tonight. Subjective/Events-last exam Pt reports doing better but still having abd pain. Improved though since BM. Focused Exam Lactate Level 06/22/21 16:41: Lactic Acid Level 0.85 Objective Exam Vital Signs Vital Signs Date Time Temp Pulse Resp B/P (MAP) Pulse Ox O2 Delivery O2 Flow Rate FiO2 06/24/21 08:07 36.3 06/24/21 08:05 97 Room Air 06/24/21 08:03 77 18 95/60 Capillary Refill : Less Than 3 Seconds General Appearance: No Apparent Distress, Thin Respiratory: Lungs Clear, No Respiratory Distress Cardiovascular: Regular Rate, Rhythm, No Murmur Gastrointestinal: Normal Bowel Sounds, Soft, Tenderness (mild, diffuse lower abdomen today) Neurologic/Psychiatric: Alert, Oriented x3 Results/Procedures Lab Laboratory Tests 06/24/21 05:10 Patient resulted labs reviewed. Imaging: Reviewed Imaging Report Assessment/Plan Assessment and Plan Assess & Plan/Chief Complaint Sepsis UTI UA consisent with UTI Abd exam improving Surgery consulted, appreciate recs Continue on IV abx Await cultures- UA just showing staph epi, sensitivities pending methamphetamine use no acute needs, clinically significant DVT ppx:: SCDs only for possible surgery Diagnosis/Problems Diagnosis/Problems (1) Acute abdomen (2) Sepsis Status: Acute Qualifiers: Sepsis type: sepsis due to unspecified organism Sepsis acute organ dysfunction status: without acute organ dysfunction Qualified Codes: A41.9 - Sepsis, unspecified organism (3) Urinary tract infection Status: Acute Qualifiers: Urinary tract infection type: acute cystitis Hematuria presence: without hematuria Qualified Codes: N30.00 - Acute cystitis without hematuria ARDEN VALENTIN MD Jun 24, 2021 09:13
[2021-06-24] MEDS ORDERED: CEFD300C3 PO (10:48)
[2021-06-24] MEDS ORDERED: METR500T PO (10:48)
== END 2021-06-24 11:06 | disposition left against medical advice (07) | DRG 872 ==
LOC: EDUNIT# 13:52 → ER 13:54 → EDLOC 16:40 → CSD 16:40
PROVIDERS: ADMIT Family Medicine; ATTEND Family Medicine
DX: A41.9 Sepsis, unspecified organism (principal); F15.90 Other stimulant use, unspecified, uncomplicated; F41.9 Anxiety disorder, unspecified; F43.10 Post-traumatic stress disorder, unspecified; F31.9 Bipolar disorder, unspecified; G43.909 Migraine, unspecified, not intractable, without status migrainosus; F17.210 Nicotine dependence, cigarettes, uncomplicated; Z79.2 Long term (current) use of antibiotics; Z79.899 Other long term (current) drug therapy; N30.90 Cystitis, unspecified without hematuria; K52.9 Noninfective gastroenteritis and colitis, unspecified; F12.90 Cannabis use, unspecified, uncomplicated
CPT/HCPCS: 36415; 74177; 80048; 80053; 80306; 81000; 83605; 84702; 84703; 85007; 85025; 85027; 86850; 86900; 86901; 87040; 87077; 87088; 87186; 96374; 96375; 96376

== ENCOUNTER 2022-01-07 16:21 | Emergency (ER) | payer MEDICAID ==
[~2022-01-07] VITALS: Ht 157.4 cm; Wt 53.5 kg
[~2022-01-07 16:21] MED LIST changes: +CEFD300C3 PO; +METR500T PO
[2022-01-07 16:26] VITALS: BP 123/80
--- NOTE | 2022-01-07 16:33 | ED GI ---
General Chief Complaint: Abdominal/GI Problems Stated Complaint: BLOODY STOOL,DIFFICULTY EATING Source of Information: Patient Exam Limitations: No Limitations History of Present Illness Date Seen by Provider: January 07, 2022 Time Seen by Provider: 16:31 Initial Comments To Er by POV with c/o bloody stools "all the time" that are either dark black or "really light". She also has trouble eating due to nausea. She at chicken and mashed potatoes today for lunch but became nauseated and was unable to finish it. She also has seen "string" in her stools. 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 Timing/Duration: Getting Worse Severity/Quality: Moderate Location: Generalized Abdomen Radiation: No Radiation Activities at Onset: None Allergies and Home Medications Allergies Coded Allergies: No Known Drug Allergies (Unverified , 09/20/19) Patient Home Medication List Home Medication List Reviewed: Yes Cefdinir (Cefdinir) 300 Mg Capsule, 300 MG PO BID Prescribed by: ARDEN VALENTIN on 06/24/21 1048 Metronidazole (Flagyl) 500 Mg Tablet, 500 MG PO BID Prescribed by: ARDEN VALENTIN on 06/24/21 1048 Review of Systems Review of Systems Constitutional: see HPI EENTM: No Symptoms Reported Respiratory: No Symptoms Reported Cardiovascular: No Symptoms Reported Gastrointestinal: See HPI, Abdominal Pain, Nausea Genitourinary: No Symptoms Reported Musculoskeletal: no symptoms reported Skin: no symptoms reported Psychiatric/Neurological: No Symptoms Reported Endocrine: No Symptoms Reported Hematologic/Lymphatic: No Symptoms Reported Past Hpcumbp-Zoamoz-Oijbqt Hx Immunizations Up To Date Tetanus Booster (TDap): Less than 5yrs PED Vaccines UTD: Yes Seasonal Allergies Seasonal Allergies: Yes Past Medical History Surgeries: No Gallbladder Respiratory: No Cardiac: No Irregular Heartbeat, Palpitations Neurological: No Headaches /Migraines Reproductive Disorders: No Irritable Bowel Musculoskeletal: No Endocrine: No HEENT: No (wears glasses) Cancer: No Psychosocial: Yes Sleep Difficulties, Anxiety, PTSD, Suicide Attempts, Bipolar, Depression Integumentary: No Blood Disorders: No Family Medical History No Pertinent Family Hx Physical Exam Vital Signs Vital Signs - First Documented 01/07/22 16:26 Temp 36.6 Pulse 109 Resp 20 B/P (MAP) 123/80 (94) Pulse Ox 100 Capillary Refill : Height/Weight/BMI Height: 5'2" Weight: 170lbs. oz. [id number]; 21.40 BMI Method: General Appearance: WD/WN, no apparent distress HEENT: PERRL/EOMI, normal ENT inspection Respiratory: no respiratory distress, no accessory muscle use Cardiovascular: no murmur, tachycardia Gastrointestinal: normal bowel sounds, non tender, soft Extremities: normal range of motion, non-tender Neurologic/Psychiatric: alert, normal mood/affect, oriented x 3 Skin: normal color, warm/dry Progress/Results/Core Measures Results/Orders Lab Results Laboratory Tests Test 01/07/22 16:33 01/07/22 16:37 Range/Units Urine Color YELLOW Urine Clarity CLEAR Urine pH 6.5 5-9 Urine Specific [place] 1.010 L 1.016-1.022 Urine Protein NEGATIVE NEGATIVE Urine Glucose (UA) NEGATIVE NEGATIVE Urine Ketones NEGATIVE NEGATIVE Urine Nitrite NEGATIVE NEGATIVE Urine Bilirubin NEGATIVE NEGATIVE Urine Urobilinogen 0.2 < = 1.0 MG/DL Urine Leukocyte Esterase TRACE H NEGATIVE Urine RBC (Auto) NEGATIVE NEGATIVE Urine RBC 0-2 /HPF Urine WBC 0-2 /HPF Urine Squamous Epithelial Cells NONE /HPF Urine Crystals NONE /LPF Urine Bacteria NEGATIVE /HPF Urine Casts NONE /LPF Urine Mucus NEGATIVE /LPF Urine Culture Indicated NO Urine Opiates Screen NEGATIVE NEGATIVE Urine Oxycodone Screen NEGATIVE NEGATIVE Urine Methadone Screen NEGATIVE NEGATIVE Urine Propoxyphene Screen NEGATIVE NEGATIVE Urine Barbiturates Screen NEGATIVE NEGATIVE Ur Tricyclic Antidepressants Screen NEGATIVE NEGATIVE Urine Phencyclidine Screen NEGATIVE NEGATIVE Urine Amphetamines Screen POSITIVE H NEGATIVE Urine Methamphetamines Screen NEGATIVE NEGATIVE Urine Benzodiazepines Screen POSITIVE H NEGATIVE Urine Cocaine Screen NEGATIVE NEGATIVE Urine Cannabinoids Screen NEGATIVE NEGATIVE White Blood Count 10.9 4.3-11.0 10^3/uL Red Blood Count 4.52 3.80-5.11 10^6/uL Hemoglobin 13.7 11.5-16.0 g/dL Hematocrit 41 35-52 % Mean Corpuscular Volume 90 80-99 fL Mean Corpuscular Hemoglobin 30 25-34 pg Mean Corpuscular Hemoglobin Concent 34 32-36 g/dL Red Cell Distribution Width 13.2 10.0-14.5 % Platelet Count 306 130-400 10^3/uL Mean Platelet Volume 9.9 9.0-12.2 fL Immature Granulocyte % (Auto) 0 % Neutrophils (%) (Auto) 58 42-75 % Lymphocytes (%) (Auto) 31 12-44 % Monocytes (%) (Auto) 8 0-12 % Eosinophils (%) (Auto) 3 0-10 % Basophils (%) (Auto) 1 0-10 % Neutrophils # (Auto) 6.3 1.8-7.8 10^3/uL Lymphocytes # (Auto) 3.4 1.0-4.0 10^3/uL Monocytes # (Auto) 0.8 0.0-1.0 10^3/uL Eosinophils # (Auto) 0.3 0.0-0.3 10^3/uL Basophils # (Auto) 0.1 0.0-0.1 10^3/uL Immature Granulocyte # (Auto) 0.0 0.0-0.1 10^3/uL Sodium Level 140 135-145 MMOL/L Potassium Level 4.2 3.6-5.0 MMOL/L Chloride Level 105 98-107 MMOL/L Carbon Dioxide Level 24 21-32 MMOL/L Anion Gap 11 5-14 MMOL/L Blood Urea Nitrogen 24 H 7-18 MG/DL Creatinine 0.68 0.60-1.30 MG/DL Estimat Glomerular Filtration Rate 124 BUN/Creatinine Ratio 35 Glucose Level 91 70-105 MG/DL Calcium Level 9.3 8.5-10.1 MG/DL Corrected Calcium 9.2 8.5-10.1 MG/DL Total Bilirubin 0.2 0.1-1.0 MG/DL Aspartate Amino Transf (AST/SGOT) 17 5-34 U/L Alanine Aminotransferase (ALT/SGPT) 16 0-55 U/L Alkaline Phosphatase 92 40-136 U/L C-Reactive Protein High Sensitivity 0.04 0.00-0.50 MG/DL Total Protein 7.3 6.4-8.2 GM/DL Albumin 4.1 3.2-4.5 GM/DL Serum Test, Qualitative NEGATIVE NEGATIVE My Orders Orders - MCKAYLA ALVAREZ APRN Ua Culture If Indicated (01/07/22 16:26) Hcg,Qualitative Serum (01/07/22 16:26) Cbc With Automated Diff (01/07/22 16:26) Comprehensive Metabolic Panel (01/07/22 16:26) Drug Screen Stat (Urine) (01/07/22 16:26) Hs C Reactive Protein (01/07/22 16:33) Vital Signs/I&O 01/07/22 16:26 Temp 36.6 Pulse 109 Resp 20 B/P (MAP) 123/80 (94) Pulse Ox 100 Departure Impression Primary Impression: Nausea and vomiting Additional Impression: History of bloody stools Disposition: HOME, SELF-CARE Condition: Stable Departure-Patient Inst. Decision time for Depature: 17:14 Referrals: HAYLEY GALVEZ BRETT D DO KIDO, TAKAAKI MD NO,LOCAL PHYSICIAN (PCP) Primary Care Physician Patient Instructions: Bloody Stools, Adult (DC) Add. Discharge Instructions: . Call a surgeon of your choosing to follow up on the bloody stools which will include a colonoscopy. All discharge instructions reviewed with patient and/or family. Voiced understanding. MCKAYLA ALVAREZ ENGINEERING TECHNICAL SPECIALIST January 07, 2022 16:33
[2022-01-07 16:44] LABS: BASOPHILS # (AUTO) 0.1 10^3/uL (0.0-0.1); BASOPHILS % (AUTO) 1 % (0-10); EOSINOPHILS # (AUTO) 0.3 10^3/uL (0.0-0.3); EOSINOPHILS % (AUTO) 3 % (0-10); HEMATOCRIT 41 % (35-52); HEMOGLOBIN 13.7 g/dL (11.5-16.0); LYMPHOCYTES # (AUTO) 3.4 10^3/uL (1.0-4.0); LYMPHOCYTES % (AUTO) 31 % (12-44); MEAN CORPUSCULAR HEMOGLOBIN 30 pg (25-34); MEAN CORPUSCULAR HGB CONC 34 g/dL (32-36); MEAN CORPUSCULAR VOLUME 90 fL (80-99); MEAN PLATELET VOLUME 9.9 fL (9.0-12.2); MONOCYTES # (AUTO) 0.8 10^3/uL (0.0-1.0); MONOCYTES % (AUTO) 8 % (0-12); NEUTROPHILS # (AUTO) 6.3 10^3/uL (1.8-7.8); NEUTROPHILS % (AUTO) 58 % (42-75); PLATELET COUNT 306 10^3/uL (130-400); WHITE BLOOD COUNT 10.9 10^3/uL (4.3-11.0)
[2022-01-07 16:49] LABS: BILIRUBIN,URINE NEGATIVE (NEGATIVE); CLARITY,URINE CLEAR; COLOR,URINE YELLOW; GLUCOSE, URINE (UA) NEGATIVE (NEGATIVE); KETONES,URINE NEGATIVE (NEGATIVE); LEUKOCYTE ESTERASE ,URINE TRACE (NEGATIVE); NITRITE,URINE NEGATIVE (NEGATIVE); PH,URINE 6.5 (5-9); PROTEIN,URINE NEGATIVE (NEGATIVE)
[2022-01-07 17:03] LABS: AMPHETAMINE SCREEN, URINE POSITIVE (NEGATIVE); BARBITURATE SCREEN URINE NEGATIVE (NEGATIVE); BENZODIAZEPINES SCREEN URINE POSITIVE (NEGATIVE); CANNABINOID SCREEN, URINE NEGATIVE (NEGATIVE); COCAINE SCREEN URINE NEGATIVE (NEGATIVE); METHADONE STAT NEGATIVE (NEGATIVE); OPIATE SCREEN URINE NEGATIVE (NEGATIVE); OXYCODONE STAT NEGATIVE (NEGATIVE); PROPOXYPHENE STAT NEGATIVE (NEGATIVE); TRICYCLIC ANTIDEPRESSANTS SCRE NEGATIVE (NEGATIVE)
[2022-01-07 17:08] LABS: BACTERIA,URINE NEGATIVE /HPF; RBC,URINE 0-2 /HPF; WBC,URINE 0-2 /HPF
[2022-01-07 17:10] LABS: ALBUMIN 4.1 GM/DL (3.2-4.5); POTASSIUM 4.2 MMOL/L (3.6-5.0)
[2022-01-07 17:11] LABS: CALCIUM 9.3 MG/DL (8.5-10.1)
[2022-01-07 17:13] LABS: TOTAL PROTEIN 7.3 GM/DL (6.4-8.2)
[2022-01-07 17:14] LABS: BILIRUBIN,TOTAL 0.2 MG/DL (0.1-1.0)
[2022-01-07 17:16] LABS: CREATININE SERUM 0.68 MG/DL (0.60-1.30)
== END 2022-01-07 17:39 | disposition home or self-care (01) ==
LOC: EDUNIT# 16:21 → ER 16:22
DX: R11.2 Nausea with vomiting, unspecified (principal); K92.1 Melena; Z32.02 Encounter for pregnancy test, result negative
CPT/HCPCS: 36415; 80053; 80306; 81000; 84703; 85025; 86141

== ENCOUNTER 2022-02-27 16:22 | Emergency (ER) | payer MEDICAID ==
[~2022-02-27] VITALS: Ht 157.5 cm; Wt 61.0 kg
[2022-02-27 17:10] LABS: CLARITY,URINE CLEAR; COLOR,URINE YELLOW; GLUCOSE, URINE (UA) NEGATIVE (NEGATIVE); KETONES,URINE NEGATIVE (NEGATIVE); LEUKOCYTE ESTERASE ,URINE NEGATIVE (NEGATIVE); NITRITE,URINE NEGATIVE (NEGATIVE); PH,URINE 5.5 (5-9); PROTEIN,URINE NEGATIVE (NEGATIVE)
[2022-02-27 17:19] LABS: BACTERIA,URINE TRACE /HPF; BILIRUBIN,URINE 1+ (NEGATIVE); SQUAMOUS EPITHELIAL CELL,UR 0-2 /HPF
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
[2022-02-27 18:49] VITALS: BP 103/76
== END 2022-02-27 18:47 | disposition home or self-care (01) ==
LOC: EDUNIT# 16:22 → ER 16:24
DX: O26.891 Other specified pregnancy related conditions, first trimester (principal); R10.2 Pelvic and perineal pain; O99.331 Smoking (tobacco) complicating pregnancy, first trimester; F17.210 Nicotine dependence, cigarettes, uncomplicated; Z90.49 Acquired absence of other specified parts of digestive tract; Z3A.12 12 weeks gestation of pregnancy; Z28.310 Unvaccinated for COVID-19; Y04.2XXA Assault by strike against or bumped into by another person, initial encounter
CPT/HCPCS: 81000